=== PATIENT | male | born 1945 | race Caucasian/White ===

== ENCOUNTER → 2016-05-20 09:21 | Outpatient (CLI) | payer MEDICARE, BC ==
[2015-08-03 07:16] VITALS: BMI 31.9
[~2016-05-20 09:21] MED LIST: ASPIRIN325 MG PO; CATAPRES0.1 MG PO; CO Q-10100 MG PO; ESTER-C 500 MG1 TAB PO; GARLIC1 CAP PO; HYDROCODON-ACE1 EAC7 PO; IMDUR30 MG PO; LISINOPRIL-HCTZ1 T11 PO; MILK THISTLE175 M1 PO; MULTIPLE VITAMI1 TA1 PO; NATTOKINASE PO; NORVASC10 MG PO; PROSTATE FORMULA PO; VITAMIN E400 UNI2 PO; ZEBETA5 MG PO; ZETIA10 MG PO; [UNRECOGNIZED DRUG - OTHER] PO; [UNRECOGNIZED DRUG - OTHER] PO; [UNRECOGNIZED DRUG - OTHER] PO
== END | disposition home or self-care (01) ==
LOC: D.NM 09:21
DX: Z96.652 Presence of left artificial knee joint (principal)

== ENCOUNTER → 2017-04-07 08:22 | Outpatient (CLI) | payer MEDICARE, BC ==
[2015-08-03 07:16] VITALS: BMI 31.9
== END | disposition home or self-care (01) ==
LOC: D.US 08:22
DX: I71.4 Abdominal aortic aneurysm, without rupture (principal)

== ENCOUNTER → 2017-09-15 08:21 | Outpatient (CLI) | payer MEDICARE, BC ==
[2015-08-03 07:16] VITALS: BMI 31.9
== END | disposition home or self-care (01) ==
LOC: D.RAD 08:15 → D.US 08:30 → D.RAD 09:30 → D.US 10:30
DX: R10.84 Generalized abdominal pain (principal); R13.10 Dysphagia, unspecified; I71.4 Abdominal aortic aneurysm, without rupture

== ENCOUNTER → 2017-09-26 08:47 | Outpatient (CLI) | payer MEDICARE, BC ==
[2015-08-03 07:16] VITALS: BMI 31.9
== END | disposition home or self-care (01) ==
LOC: D.CT 08:47
DX: I71.4 Abdominal aortic aneurysm, without rupture (principal)

== ENCOUNTER 2018-04-16 06:31 | Outpatient (CLI) | payer MEDICARE, BC ==
[~2018-04-16] VITALS: Ht 177.8 cm; Wt 89.1 kg
--- NOTE | ~2018-04-16 | HEMODYNAMI ---
PATIENT:KIM HONEYCUTT MEDICAL RECORD: [id number] : 45 LOCATION:[facility] ADMISSION DATE: 04/16/18 Generatedon:04/16/20189:31 Patient name: KIM HONEYCUTT Patient #: [id number] SSN: : 1945 Date of study: 04/16/2018 Page: Of Hemodynamic Procedure Report Patient Data Patient Demographics Procedure consent was obtained First Name: KIM Gender: Male Last Name: TANGELA : 1945 Middle Initial: W Age: 72 year(s) Patient #: [id number] Race: Additional ID: [id number] Contact details [address]: [address] [place] [address] State: [place] City: [place] Zip code: [address] Past Medical History Allergies Allergen Reaction Date Comments Reported Other allergy 04/16/2018 Warfarin,Statins, PCN, Sulfa Admission Admission Data Admission Date: 04/16/2018 Admission Time: 6:31 Admit Source: Other Lab Results Lab Result Date: 04/16/2018 Lab Result Time: 0:00 Biochemistry Name Units Result Min Max BUN mg/dl 31 --(----)-* 7 18 Creatinine mg/dl 1.5 --(----)-* 0.6 1.3 CBC Name Units Result Min Max Hematocrit % 41.2 -*(----)-- 42 54 Hemoglobin g/dl 13.7 --(*---)-- 13.5 17.5 Procedure Procedure Types Cath Procedure Diagnostic Procedure LHC LHC w/Coronaries w/Grafts Peripheral Cath Diagnostic Procedure [employer] Peripheral Procedures Ovywt-Ibvbhac-Ioi-Off Renal Arteriogram Procedure Description Procedure Date Procedure Date: 04/16/2018 Procedure Start Time: 9:03 Procedure End Time: 9:30 Procedure Staff Name Function Watson Sewell MD Performing Physician Maximo Simmons RT Monitor Shyla Roper RT Scrub Aaliyah Lehman RN Nurse Loc Stover RT System Administration Advisor Procedure Data Cath Procedure Fluoroscopy Diagnostic fluoroscopy Total fluoroscopy Time: 7.4 time: 7.4 min min Diagnostic fluoroscopy Total fluoroscopy dose: dose: 1585 mGy 1585 mGy Contrast Material Contrast Material Type Amount (ml) Isovue 300 201 Entry Location Entry Primary Successful Side Size Upsize Upsize Entry Closure Succes sful Closure Location (Fr) 1 (Fr) 2 (Fr) Remarks Device Remarks Femoral Right 5 Fr Exoseal artery Estimated blood loss: 5 ml Diagnostic catheters Device Type Used For End Catheter Placement MULTIPACK JL 4.0 5Fr Procedure catheter DIAGNOSTIC AR MOD 5Fr Procedure Catheter ([id number]) DIAGNOSTIC LCB 5Fr Procedure catheter ([id number]) DIAGNOSTIC IM 5Fr Procedure catheter ([id number]) MULTIPACK Pigtail 5 Fr Procedure catheter MULTIPACK 3DRC 5Fr Procedure catheter Procedure Complications No complications Procedure Medications Medication Administration Route Dosage Oxygen etCO2 Nasal cannula 2 l/min Lidocaine 2% added to field 20 Heparin Flush Bag added to field 2 bags (1000units/500ml NS) 0.9% NaCl I.V. 100 ml/hr Versed I.V. 2 mg Fentanyl I.V. 100 mcg Versed I.V. 1 mg Fentanyl I.V. 50 mcg Versed I.V. 1 mg Fentanyl I.V. 50 mcg Hemodynamics Rest HGB: 13.7 (g/dl) Heart Rate: 69 (bpm) Pressure Samples Time Site Value (mmHg) Purpose Heart Use Rate(bpm) 9:16 LV 151/-2,19 Snapshot 76 9:16 AO 149/67(101) Pullback 73 9:16 LV 156/-1,19 Pullback 73 Gradients Valve Time Site 1 Site 2 Mean SEP/DFP Peak To Heart Use (mmHg) (sec/min) Peak Rate (mmHg) (bpm) Aortic 9:16 LV AO 10 18 7 73 156/-1,19 149/67(101) Calculations Valve P-P Mean Valve Index Valve Source Name Gradient Area Flow (cm2) Aortic 7 10 7 10 Snapshots Pre Cath Intra NCS Post Cath Vital Signs Time Heart Resp SPO2 etCO2 NIBP (mmHg) Rhythm Pain Sedation Rate (ipm) (%) (mmHg) Status Level (bpm) 8:42:48 69 16 99 13.5 164/84(128) NSR 0 (11) 10(A) , No pain 8:47:09 70 17 99 11.2 153/86(120) NSR 0 (11) 10(A) , No pain 8:51:31 67 13 92 0 135/77(111) NSR 0 (11) 10(A) , No pain 8:55:45 74 13 96 8.2 139/80(121) NSR 0 (11) 10(A) , No pain 9:00:03 69 14 98 27.7 143/75(114) NSR 0 (11) 10(A) , No pain 9:04:58 67 16 98 32.2 148/79(120) NSR 0 (11) 10(A) , No pain 9:09:18 72 14 97 43.5 131/77(112) NSR 0 (11) 10(A) , No pain 9:13:34 71 15 97 45.8 149/72(113) NSR 0 (11) 10(A) , No pain 9:17:56 73 13 98 39.8 144/71(118) NSR 0 (11) 10(A) , No pain 9:21:05 73 16 98 30.8 139/70(114) NSR 0 (11) 10(A) , No pain 9:25:25 69 14 98 32.3 146/69(120) NSR 0 (11) 10(A) , No pain 9:29:45 72 15 98 25.5 144/75(118) NSR 0 (11) 10(A) , No pain Medications Time Medication Route Dose Verified Delivered Reason Notes Effe ctiveness by by 8:43:10 Oxygen etCO2 2 Watson Buffie used for Nasal l/min Donato Lehman RN procedure cannula 8:43:16 Lidocaine 2% added 20ml Watson Watson for local to vial Donato Sewell MD anesthetic field 8:43:22 Heparin Flush added 2 Watson Watson used for Bag to bags Donato Sewell MD procedure (1000units/500ml field NS) 8:43:32 0.9% NaCl I.V. 100 Watson Buffie Per ml/hr Donato Lehman RN physician 9:00:41 Versed I.V. 2 mg Watson Buffie for Donato Lehman RN sedation 9:00:47 Fentanyl I.V. 100 Watson Buffie for mcg Donato Lehman RN sedation 9:12:11 Versed I.V. 1 mg Watson Sammieie for Donato Lehman RN sedation 9:12:14 Fentanyl I.V. 50 Watson Sammieie for mcg Donato Lehman RN sedation 9:16:26 Versed I.V. 1 mg Watson Sammieie for Donato Lehman RN sedation 9:16:31 Fentanyl I.V. 50 Watson Sammieie for mcg Donato Lehman RN sedation Procedure Log Time Note 8:12:17 Informed consent obtained and on chart 8:19:38 Admit Source: Other 8:19:55 Diagnostic Cath status Elective 8:19:57 Loc Suit RT(R) sent for patient. Start room use. 8:19:58 Time tracking: Regular hours (M-F 7:00 - 5:00) 8:20:01 Plan of Care:Hemodynamics will remain stable., Cardiac rhythm will remain stable., Comfort level will be maintained., Respiratory function will remain adequate., Patient/ family verbilizes understanding of procedure., Procedure tolerated without complication., Recovers from procedure without complications.. 8:29:54 H&P Date Dictated: 04/09/2018 Within 30 days and on chart., H&P Addendum completed by physician on day of procedure. (MUST COMPLETE FOR ALL OUTPATIENTS). 8:41:38 Vital chart was started 8:43:10 Oxygen 2 l/min etCO2 Nasal cannula was administered by Aaliyah Lehman RN; used for procedure; 8:43:16 Lidocaine 2% 20ml vial added to field was administered by Watson Sewell MD; for local anesthetic; 8:43:22 Heparin Flush Bag (1000units/500ml NS) 2 bags added to field was administered by Watson Sewell MD; used for procedure; 8:43:32 0.9% NaCl 100 ml/hr I.V. was administered by Aaliyah Lehman RN; Per physician; 8:45:19 Baseline sample Acquired. 8:45:22 Rhythm: sinus rhythm 8:45:23 Full Disclosure recording started 8:45:24 Pre-procedure instructions explained to patient. 8:45:25 Pre-op teaching completed and patient verbalized understanding. 8:45:26 Family in waiting room. 8:45:27 Patient NPO since Midnight. 8:46:08 Patient allergic to Other allergyWarfarin,Statins, PCN, Sulfa 8:46:27 Is the patient allergic to Iodine/contrast media? No. 8:46:28 Is patient on blood thinner?No 8:46:29 Patient diabetic? No. 8:46:32 Previous problem with sedation/anesthesia? No ? 8:46:33 Snore? Yes 8:46:34 Sleep apnea? No 8:46:34 Deviated septum? No 8:46:35 Opens mouth fully? Yes 8:46:35 Sticks out tongue? Yes 8:46:37 Airway obstruction? No ? 8:46:38 Dentures? No ? 8:46:41 Pre procedure: right dorsailis pedis pulse Doppler 8:46:44 Pre procedure: left dorsailis pedis pulse Doppler 8:46:45 Patient pain scale 0/10 ?. 8:46:48 IV patent on arrival in left forearm with 0.9% NaCl at [facility]. 8:46:50 Lab results completed and on chart. 8:47:51 Lab Result : BUN 31 mg/dl 8:47:51 Lab Result : Creatinine 1.5 mg/dl 8:47:51 Lab Result : Hemoglobin 13.7 g/dl 8:47:51 Lab Result : Hematocrit 41.2 % 8:47:55 Bilateral groins area was prepped with chlora-prep and draped in sterile fashion 8:47:56 Alarms reviewed by R. N. 8:47:56 Sharps counted by scrub and verified by R.N. 8:47:58 Use device set Femoral Dx 8:47:59 ACIST Syringe (06647) opened to sterile field. 8:47:59 Bag Decanter (2002S) opened to sterile field. 8:48:00 Medline Cath Pack ([id number]) opened to sterile field. 8:48:01 ACIST Hand Control (33858) opened to sterile field. 8:48:01 ACIST Manifold (26384) opened to sterile field. 8:48:02 DIAGNOSTIC Multipack 5Fr catheter set ([id number]) opened to sterile field. 8:48:03 SHEATH 5FR [place] (YJN411) opened to sterile field. 8:48:04 Tegaderm 4 x 4 (1626W) opened to sterile field. 8:48:05 DIAGNOSTIC WIRE .035 260cm J wire (575999) opened to sterile field. 8:52:29 Zero performed for pressure channel P1 8:53:46 Procedure type changed to Cath procedure, Diagnostic procedure, LHC, LHC w/Coronaries w/Grafts, Peripheral Cath Diagnostic Procedure, [employer] Property [employer] Peripheral Procedures, Qypvx-Nuqpnve-Ibx-Off, Renal Arteriogram 8:55:53 Physician arrived 8:55:54 --------ALL STOP TIME OUT------ 8:55:54 Final Timeout: patient, procedure, and site verified with staff and physician. All members of the team are in agreement. 8:55:56 Bilateral groins site verified by team. 8:55:59 Physical assessment completed. ASA score P 3 - A patient with severe systemic disease as per Watson Sewell MD. 8:56:02 Sedation plan: IV Moderate Sedation Medication:Versed, Fentanyl 9:00:41 Versed 2 mg I.V. was administered by Aaliyah Lehman RN; for sedation; 9:00:47 Fentanyl 100 mcg I.V. was administered by Aaliyah Lehman RN; for sedation; 9:03:56 Procedure started. 9:03:59 Local anesthetic to right femoral artery with Lidocaine 2% by Watson Sewell MD.INITIAL ACCESS ONLY 9:05:20 A 5 Fr sheath was inserted into the Right Femoral artery 9:06:41 A MULTIPACK JL 4.0 5Fr catheter was advanced over the wire and used for Procedure. 9:07:22 LCA angiography performed. 9:08:18 Catheter exchanged over wire. 9:09:09 A DIAGNOSTIC AR MOD 5Fr Catheter ([id number]) was advanced over the wire and used for Procedure. 9:09:23 RCA angiography performed. 9:09:38 SVG to RCA angiography performed. 9:10:41 Catheter exchanged over wire. 9:10:45 A DIAGNOSTIC LCB 5Fr catheter ([id number]) was advanced over the wire and used for Procedure. 9:12:11 Versed 1 mg I.V. was administered by Aaliyah Lehman RN; for sedation; 9:12:14 Fentanyl 50 mcg I.V. was administered by Aaliyah Lehman RN; for sedation; 9:12:17 SVG to Circ angiography performed. 9:12:25 Catheter exchanged over wire. 9:12:31 A DIAGNOSTIC IM 5Fr catheter ([id number]) was advanced over the wire and used for Procedure. 9:13:39 MOORE to LAD angiography performed. 9:14:49 Catheter exchanged over wire. 9:14:54 A MULTIPACK Pigtail 5 Fr catheter was advanced over the wire and used for Procedure. 9:16:15 LV gram done using JAIMES 9:16:17 Injector settings: Ml/sec: 10, Volume: 20, 9:16:19 LV hemodynamics recorded. 9:16:26 Versed 1 mg I.V. was administered by Aaliyah Lehman RN; for sedation; 9:16:31 Fentanyl 50 mcg I.V. was administered by Aaliyah Lehman RN; for sedation; 9:16:33 EF : 50 % 9:16:34 Catheter removed. 9:17:16 Abdominal angiogram w/ runoff was performed. 9:19:22 Left leg runoff performed. 9:20:33 Baseline sample Acquired. 9:20:56 Right leg runoff performed. 9:22:02 Catheter exchanged over wire. 9:22:31 Zero performed for pressure channel P1 9:22:34 Zero performed for pressure channel P1 9:22:37 Zero performed for pressure channel P1 9:23:28 A MULTIPACK 3DRC 5Fr catheter was advanced over the wire and used for Procedure. 9:25:56 Catheter removed. 9:25:58 EXOSEAL 5Fr (EX500) opened to sterile field. 9:26:06 Sheath removed intact; hemostasis achieved with Exoseal to the Right Femoral artery. 9:26:07 Procedure ended.(Physican Out) 9:27:26 Fluoroscopy time 07.40 minutes. 9:27:31 Flurop Dose total: 1585 9:27:31 Fluoroscopy dose: 1585 mGy 9:27:36 Contrast amount:Isovue 300 201ml. 9:27:37 Sharps counted by scrub and verified by R.N. 9:27:41 Insertion/operative site no bleeding no hematoma. 9:29:07 Post right femoral artery:stable, soft, clean and dry 9:29:23 Post Procedure Pulses reassessed and unchanged 9:29:25 Post-procedure physical assessment completed. ASA score P 3 - A patient with severe systemic disease as per Watson Sewell MD. 9:29:30 Post procedure rhythm: unchanged. 9:29:32 Estimated blood loss: 5 ml 9:29:32 Post procedure instruction explained to patient.Patient verbalizes understanding. 9:29:33 Patient needs reinforcement of post procedure teaching. 9:30:26 Procedure and supply charges have been captured, reviewed, submitted and are correct. 9:30:28 Procedure Complication : No complications 9:30:30 Vital chart was stopped 9:30:30 See physician's report for complete and final results. 9:30:31 Report given to Pre/Post Procedure Room. 9:30:33 Patient transfered to Pre/Post Procedure Room with Stretcher. 9:30:35 Procedure ended. 9:30:35 Full Disclosure recording stopped 9:30:40 End room use (Document Last) Device Usage Item Name Manufacture Quantity Catalog Hospital Part Current Minimal L ot# / Number Charge Number Stock Stock Serial# Code ACIST Acist 1 76837 782249 [id number] 379355 20 Syringe Medical (18847) Systems Inc Bag Microtek 1 637254 04783 099949 5 Decanter Medical Inc. () Medline Medline 1 [id number] 888430 73851 488305 5 Cath Pack ([id number]) ACIST Hand Acist 1 11224 772671 461124 109193 5 Control Medical (95421) Systems Inc ACIST Acist 1 26478 741673 909466 680829 5 Manifold Medical (38267) Systems Inc DIAGNOSTIC Cardinal 1 [id number] 613764 53910 660276 30 Multipack Health 5Fr catheter set (DG3465) SHEATH 5FR Terumo 1 [id number] 619684 158858 351321 5 [place] (XFI755) Tegaderm 4 3M 1 1626W 783371 147819 416501 5 x 4 (1626W) DIAGNOSTIC St Harpreet 1 708341 173060 087354 519701 30 WIRE .035 260cm J wire (251647) MULTIPACK Cardinal 1 862706 5 JL 4.0 5Fr Health catheter DIAGNOSTIC Cardinal 1 [id number] 238234 335591 820225 15 AR MOD 5Fr Health Catheter (274497J) DIAGNOSTIC Cardinal 1 [id number] 163129 600693 466519 5 LCB 5Fr Health catheter (156346J) DIAGNOSTIC Cardinal 1 [id number] 554248 620561 412508 5 IM 5Fr Health catheter (827241P) MULTIPACK Cardinal 1 661184 5 Pigtail 5 Health Fr catheter MULTIPACK Cardinal 1 964516 5 3DRC 5Fr Health catheter EXOSEAL 5Fr Cardinal 1 EX500 736490 942584 142404 10 (EX500) Health Signature Audit [place] Stage Time Signature Unsigned Intra-Procedure 04/16/2018 Maximo Simmons 9:31:16 AM RT(R) Signatures Monitor : Maximo Simmons RT Signature : Date : Time : [address] [place] [address]
[2018-04-16] MEDS ORDERED: NORMODYNE / TR200 MG PO (07:03)
[2018-04-16] MEDS ORDERED: NAC600 MG PO (07:04)
[2018-04-16 07:22] VITALS: BP 144/75; Ht 177.8 cm; Wt 89.1 kg
[2018-04-16 07:56] LABS: ANION GAP 13.9 mmol/L (8-16); CALCIUM 8.7 mg/dL (8.5-10.1); CARBON DIOXIDE 25.6 mmol/L (21.0-32.0); CREATININE - SERUM 1.5 mg/dL (0.6-1.3); POTASSIUM - SERUM 4.5 mmol/L (3.5-5.1)
[2018-04-16 08:22] LABS: BASOPHILS 0.2 % (0-2); EOSINOPHILS 3.3 % (0-7); HEMATOCRIT 41.2 % (42.0-54.0); HEMOGLOBIN 13.7 g/dL (13.5-17.5); IMMATURE GRANULOCYTES 0.3 % (0-5); LYMPHOCYTES 25.3 % (15-50); MCH 30.9 pg (26.0-34.0); MCHC 33.3 g/dL (31.0-37.0); MEAN PLATELET VOLUME 9.5 fL (7.4-10.4); MONOCYTES 10.3 % (2-11); NEUTROPHILS 60.6 % (40-80); PLATELET COUNT 196 10x3/uL (130-400); RBC 4.43 10x6/uL (4.20-6.10); RDW 14.2 % (11.5-14.5); WBC 5.8 10x3/uL (4.8-10.8)
--- NOTE | 2018-04-16 09:58 | NUR ---
945 PT IS ALERT, DR FOSS AT BEDSIDE SPEAKING TO PT. PT DENIES ANY C/O. DRESSING TO RIGHT GROIN IS CDI, AREA IS SOFT AND NONTENDER. PEDAL PULSES RLE ARE PALPABLE. HOB IS FLAT. NSR, RATE 64, DENIES ANY C/O CHEST PAIN. FAMILY AT BEDSIDE, IV PATENT AND INFUSING PER ORDERS VIA PUMP.
--- NOTE | 2018-04-16 10:13 | NUR ---
5 FR EXOSEAL IS CDI, AREA IS SOFT AND NONTENDER. PEDAL PULSES PALPABLE. HOB IS FLAT. NSR, RATE 64. BP IS 131/62. FAMILY AT BEDSIDE. PT JHOANA PO FLUIDS WITH NO C/O NAUSEA.
--- NOTE | 2018-04-16 10:51 | NUR ---
PT ALERT AND VISITING WITH FAMILY. DENIES ANY C/O PAIN OR NAUSEA. DRESSING CDI TO RIGHT GROIN, AREA IS SOFT AND NONTENDER. PEDAL PULSES PALPABLE. IV PATENT AND INFUSING VIA PUMP PER ORDERS. PT JHOANA PO FLUIDS WITH NO C/O NAUSEA. VSS. CALL LIGHT IN REACH.
--- NOTE | 2018-04-16 10:59 | NUR ---
PT VOIDED 600 CC CLEAR YELLOW URINE TO URINAL. DRESSING CDI TO RIGHT GROIN, AREA IS SOFT AND NONTENDER. PEDAL PULSES PALPABLE. HOB IS FLAT, FAMILY AT BEDSIDE. CALL LIGHT IN REACH.
--- NOTE | 2018-04-16 11:33 | NUR ---
HOB ELEVATED 30 DEGREES, DRESSING CDI TO RIGHT GROIN, PEDAL PULSES PALPABLE. PT ALERT AND DENIES ANY C/O PAIN.
--- NOTE | 2018-04-16 11:57 | NUR ---
DRESSING CDI TO RIGHT GROIN, AREA IS SOFT AND NONTENDER. PEDAL PULSES PALPABLE. HOB FULLY ELEVATED. VSS. SON AT BEDSIDE. CALL LIGHT IN REACH.
--- NOTE | 2018-04-16 12:11 | NUR ---
DRESSING REMAINS CDI TO RIGHT GROIN, AREA IS SOFT AND NONTENDER. PEDAL PULSES PALPABLE. PT JHOANA 100% OF SANDWICH WITH NO C/O NAUSEA. DC INSTRUCTIONS REVIEWED WITH PT AND SON WHO VERBALIZE UNDERSTANDING. WRITTEN COPIES PROVIDED TO PT.
--- NOTE | 2018-04-16 12:55 | NUR ---
INFUSION COMPLETE AND IV DC'D WITH CATH INTACT. ASSISTED PT WITH DRESSING FOR DC TO HOME. DRESSING IS CDI TO RIGHT GROIN, AREA IS SOFT AND NONTENDER. PEDAL PULSES PALPABLE. PT ESCORTED TO PRIVATE AUTO VIA WC BY NURSE WITH SON DRIVING HIM HOME.
== END 2018-04-16 12:55 | disposition home or self-care (01) ==
LOC: D.CATH 06:31
PROVIDERS: Internal Medicine Cardiovascular Disease
DX: I25.119 Atherosclerotic heart disease of native coronary artery with unspecified angina pectoris (principal); Z95.1 Presence of aortocoronary bypass graft; I70.1 Atherosclerosis of renal artery; I70.213 Atherosclerosis of native arteries of extremities with intermittent claudication, bilateral legs; I10 Essential (primary) hypertension

== ENCOUNTER 2018-04-28 10:47 | Outpatient (CLI) | payer MEDICARE, BC ==
[~2018-04-28] VITALS: Ht 177.8 cm; Wt 90.0 kg
--- NOTE | ~2018-04-28 | HEMODYNAMI ---
PATIENT:KIM HONEYCUTT MEDICAL RECORD: [id number] : 45 LOCATION:[facility] ADMISSION DATE: 04/28/18 Generatedon:04/28/201814:22 Patient name: KIM HONEYCUTT Patient #: [id number] SSN: : 1945 Date of study: 04/28/2018 Page: Of Hemodynamic Procedure Report Patient Data Patient Demographics Procedure consent was obtained First Name: KIM Gender: Male Last Name: TANGELA : 1945 Middle Initial: W Age: 72 year(s) Patient #: [id number] Race: Additional ID: [id number] Contact details [address]: [address] [place] [address] State: [place] City: [place] Zip code: [address] Past Medical History Allergies Allergen Reaction Date Comments Reported Other allergy 04/16/2018 Warfarin,Statins, PCN, Sulfa Other allergy 04/28/2018 WARFARIN, STATINS, PCN, SULFA Admission Admission Data Admission Date: 04/28/2018 Admission Time: 10:47 Weight (lbs.): 460.77 Weight (kg.): 209 Lab Results Lab Result Date: 04/28/2018 Lab Result Time: 0:00 Biochemistry Name Units Result Min Max BUN mg/dl 30 --(----)-* 7 18 Creatinine mg/dl 1.7 --(----)-* 0.6 1.3 CBC Name Units Result Min Max Hemoglobin g/dl 13.9 --(*---)-- 13.5 17.5 Procedure Procedure Types Cath Procedure Diagnostic Procedure Sedation Charges Moderate Sedation up to 45 minutes Peripheral vascular Intervention Angioplasty DIRECTOR OF MARKETING OPERATIONS-Renal/Visceral Stent Stent Iliac w/plasty Initial Procedure Description Procedure Date Procedure Date: 04/28/2018 Procedure Start Time: 13:19 Procedure End Time: 14:19 Procedure Staff Name Function Watson Sewell MD Performing Physician Ina Plata RT Monitor Loc Stover RT Scrub Aaliyah Lehman RN Nurse Mary Lou Perez RN Nurse Procedure Data Cath Procedure Fluoroscopy Diagnostic fluoroscopy Total fluoroscopy Time: time: 12.9 min 12.9 min Diagnostic fluoroscopy Total fluoroscopy dose: 843 dose: 843 mGy mGy Contrast Material Contrast Material Type Amount (ml) Isovue 300 118 Entry Location Entry Primary Successful Side Size Upsize Upsize Entry Closure Succes sful Closure Location (Fr) 1 (Fr) 2 (Fr) Remarks Device Remarks Femoral Left 6 Fr 6 Fr 7 Fr Exoseal artery Short Long Long Estimated blood loss: 10 ml Procedure Complications No complications Procedure Medications Medication Administration Route Dosage 0.9% NaCl I.V. 100 ml/hr Oxygen etCO2 Nasal cannula 2 l/min Lidocaine 2% added to field 20 Heparin Flush Bag added to field 2 bags (1000units/500ml NS) Versed I.V. 2 mg Fentanyl I.V. 100 mcg Versed I.V. 1 mg Fentanyl I.V. 50 mcg Versed I.V. 1 mg Fentanyl I.V. 50 mcg Heparin Bolus I.V. 7000 units Versed I.V. 1 mg Fentanyl I.V. 50 mcg Versed I.V. 1 mg Fentanyl I.V. 50 mcg Versed I.V. 1 mg Fentanyl I.V. 50 mcg Versed I.V. 1 mg Fentanyl I.V. 50 mcg Plavix P.O. 600 mg Hemodynamics Rest Pre Cath Intra NCS Post Cath Vital Signs Time Heart Resp SPO2 etCO2 NIBP (mmHg) Rhythm Pain Sedation Rate (ipm) (%) (mmHg) Status Level (bpm) 13:06:31 80 20 100 31.7 168/81(136) NSR 0 (11) 10(A) , No pain 13:10:56 64 17 100 29.4 156/87(129) NSR 0 (11) 10(A) , No pain 13:15:30 57 12 97 24.1 155/66(134) NSR 0 (11) 10(A) , No pain 13:19:50 71 13 96 34 145/85(113) NSR 0 (11) 10(A) , No pain 13:24:14 71 15 99 37.7 154/80(115) NSR 0 (11) 9(A) , No pain 13:28:36 69 12 99 37.7 157/72(117) NSR 0 (11) 9(A) , No pain 13:32:55 69 11 99 35.5 139/75(117) NSR 0 (11) 9(A) , No pain 13:37:11 71 11 98 39.2 127/68(113) NSR 0 (11) 9(A) , No pain 13:41:31 70 12 97 39.2 136/70(109) NSR 0 (11) 10(A) , No pain 13:45:49 77 14 97 16.6 143/74(106) NSR 0 (11) 10(A) , No pain 13:50:11 75 15 98 35.4 142/77(105) NSR 0 (11) 10(A) , No pain 13:54:33 76 13 95 20.3 136/70(106) NSR 0 (11) 9(A) , No pain 13:58:59 72 14 98 34.7 139/69(106) NSR 0 (11) 9(A) , No pain 14:03:19 70 11 98 34.7 143/76(108) NSR 0 (11) 10(A) , No pain 14:07:33 71 12 98 38.4 133/74(117) NSR 0 (11) 9(A) , No pain 14:11:56 69 13 98 35.4 140/69(109) NSR 0 (11) 10(A) , No pain 14:16:18 75 14 98 27.9 149/83(120) NSR 0 (11) 10(A) , No pain Medications Time Medication Route Dose Verified Delivered Reason Notes Effectiveness by by 13:05:21 0.9% NaCl I.V. 100 Watson Mary Lou used for ml/hr Donato Perez ent nurse 13:05:27 Oxygen etCO2 2 Watson Mary Lou used for Nasal l/min Donato Perez procedure cannula RN 13:05:35 Lidocaine 2% added 20ml Watson Watson for local to vial Donato Sewell MD anesthetic field 13:05:39 Heparin Flush added 2 Watson Watson used for Bag to bags Donato Sewell MD procedure (1000units/500ml field NS) 13:16:26 Versed I.V. 2 mg Watson Buffie for sedation Donato Lehman RN 13:16:33 Fentanyl I.V. 100 Watson Buffie for sedation mcg Donato Lehman RN 13:20:28 Versed I.V. 1 mg Watson Buffie for sedation Donato Lehman RN 13:20:33 Fentanyl I.V. 50 Watson Buffie for sedation mcg Donato Lehman RN 13:28:52 Versed I.V. 1 mg Watson Buffie for sedation Donato Lehman RN 13:28:56 Fentanyl I.V. 50 Watson Buffie for sedation mcg Donato Lehman RN 13:30:11 Heparin Bolus I.V. 7000 Watson Buffie for verif ied units Donato Lehman RN anticoagulation with dr sewell 13:38:33 Versed I.V. 1 mg Watson Buffie for sedation Donato Lehman RN 13:38:37 Fentanyl I.V. 50 Watson Buffie for sedation mcg Donato Lehman RN 13:44:28 Versed I.V. 1 mg Watson Buffie for sedation Donato Lehman RN 13:44:31 Fentanyl I.V. 50 Watson Buffie for sedation mcg Donato Lehman RN 13:49:37 Versed I.V. 1 mg Watson Buffie for sedation Donato Lehman RN 13:49:40 Fentanyl I.V. 50 Watson Buffie for sedation mcg Donato Lehman RN 14:06:34 Versed I.V. 1 mg Watson Buffie for sedation Donato Lehman RN 14:06:45 Fentanyl I.V. 50 Watson Buffie for sedation mcg Donato Lehman RN 14:19:24 Plavix P.O. 600 Watson Buffie for mg Donato Lehman RN antiplatelet therapy Procedure Log Time Note 12:47:21 Aaliyah Lehman RN sent for patient. Start room use. 12:47:22 Signed procedure consent form obtained from patient. 12:47:24 Diagnostic Cath status Elective 12:47:25 Time tracking: Regular hours (M-F 7:00 - 5:00) 12:47:30 Plan of Care:Hemodynamics will remain stable., Cardiac rhythm will remain stable., Comfort level will be maintained., Respiratory function will remain adequate., Patient/ family verbilizes understanding of procedure., Procedure tolerated without complication., Recovers from procedure without complications.. 12:47:42 H&P Date Dictated: 04/09/2018 Within 30 days and on chart., H&P Addendum completed by physician on day of procedure. (MUST COMPLETE FOR ALL OUTPATIENTS). 13:00:39 Patient received from Pre/Post Procedure Room to CCL 1 Alert and oriented. Tansferred to table in Supine position. 13:00:40 Warm blankets applied, and senait hugger turned on for patient comfort. 13:00:40 Correct patient and procedure confirmed by team. 13:00:41 ECG and BP/O2 sat monitors applied to patient. 13:05:11 Vital chart was started 13:05:21 0.9% NaCl 100 ml/hr I.V. was administered by Mary Lou Perez RN; used for procedure; 13:05:27 Oxygen 2 l/min etCO2 Nasal cannula was administered by Mary Lou Perez RN; used for procedure; 13:05:35 Lidocaine 2% 20ml vial added to field was administered by Watson Sewell MD; for local anesthetic; 13:05:39 Heparin Flush Bag (1000units/500ml NS) 2 bags added to field was administered by Watson Sewell MD; used for procedure; 13:11:23 Rhythm: sinus rhythm 13:11:24 Full Disclosure recording started 13:11:25 Pre-procedure instructions explained to patient. 13:11:25 Pre-op teaching completed and patient verbalized understanding. 13:11:27 Family in patients room. 13:11:28 Patient NPO since Midnight. 13:11:57 Patient allergic to Other allergyWARFARIN, STATINS, PCN, SULFA 13:12:03 Is patient on blood thinner?No 13:12:08 Patient diabetic? No. 13:12:12 Previous problem with sedation/anesthesia? No ? 13:12:13 Snore? Yes 13:12:14 Sleep apnea? No 13:12:15 Deviated septum? No 13:12:16 Opens mouth fully? Yes 13:12:16 Sticks out tongue? Yes 13:12:18 Airway obstruction? No ? 13:12:21 Dentures? No ? 13:12:32 Pre procedure: right dorsailis pedis pulse 1+ Palpable, but thready & weak; easily obliterated 13:12:34 Pre procedure: left dorsailis pedis pulse 1+ Palpable, but thready & weak; easily obliterated 13:12:37 Patient pain scale 0/10 ?. 13:12:41 IV patent on arrival in left hand with 0.9% NaCl at [facility]. 13:13:00 Lab Result : BUN 30 mg/dl 13:13:00 Lab Result : Creatinine 1.7 mg/dl 13:13:00 Lab Result : Hemoglobin 13.9 g/dl 13:13:02 Lab results completed and on chart. 13:13:08 Bilateral groins area was prepped with chlora-prep and draped in sterile fashion 13:13:09 Alarms reviewed by R. N. 13:13:09 Sharps counted by scrub and verified by R.N. 13:13:16 Use device set CATH PACK 13:13:17 ACIST Syringe (69348) opened to sterile field. 13:13:18 ACIST Hand Control (91917) opened to sterile field. 13:13:18 ACIST Manifold (85650) opened to sterile field. 13:13:18 Medline Cath Pack ([id number]) opened to sterile field. 13:13:19 Bag Decanter (2002S) opened to sterile field. 13:13:19 DIAGNOSTIC WIRE .035 260cm J wire (818519) opened to sterile field. 13:13:43 SHEATH 6FR [place] (CIN509) opened to sterile field. 13:13:44 SHEATH 6FR Brite Tip 35cm (079293V) opened to sterile field. 13:13:44 INFLATOR Merit BasixCompak (MZ3434) opened to sterile field. 13:14:04 --------ALL STOP TIME OUT------ 13:14:05 Final Timeout: patient, procedure, and site verified with staff and physician. All members of the team are in agreement. 13:14:06 Bilateral groins site verified by team. 13:14:09 Physical assessment completed. ASA score P 3 - A patient with severe systemic disease as per Watson Sewell MD. 13:14:12 Sedation plan: IV Moderate Sedation Medication:Versed, Fentanyl 13:16:26 Versed 2 mg I.V. was administered by Aaliyah Lehman RN; for sedation; 13:16:33 Fentanyl 100 mcg I.V. was administered by Aaliyah Lehman RN; for sedation; 13:19:42 Zero performed for pressure channel P1 13:19:47 Procedure started. 13:19:56 Local anesthetic to left femerol artery with Lidocaine 2% by Watson Sewell MD.INITIAL ACCESS ONLY 13:20:28 Versed 1 mg I.V. was administered by Aaliyah Lehman RN; for sedation; 13::33 Fentanyl 50 mcg I.V. was administered by Aaliyah Lehman RN; for sedation; 13:21:28 A 6 Fr Short sheath was inserted into the Left Femoral artery 13:22:31 Cordis 6Fr RDC guide catheter opened to sterile field. 13:23:00 TUBING High Pressure Extension Tubing (Donato) ([id number]) opened to sterile field. 13:23:41 6 Fr RDC guide catheter was inserted over the wire 13:28:16 Guide Catheter removed. unable to cannulate vessel. 13:28:32 GUIDE 6FR JR 4.0 catheter ([id number]) opened to sterile field. 13::41 6 Fr JR 4 guide catheter was inserted over the wire 13:28:52 Versed 1 mg I.V. was administered by Aaliyah Lehman RN; for sedation; ::56 Fentanyl 50 mcg I.V. was administered by Aaliyah Lehman RN; for sedation; 13:29:44 Right renal angiography performed. 13:30:11 Heparin Bolus 7000 units I.V. was administered by Aaliyah Lehman RN; for anticoagulation; verified with dr sewell 13:30:19 BMW 300cm Straight [place] 2 wire ([id number]) opened to sterile field. 13:31:07 BMW 300 wire advanced. 13:32:10 Procedure type changed to Cath procedure, Diagnostic procedure, Sedation Charges, Moderate Sedation up to 45 minutes, Peripheral vascular Intervention, Angioplasty, DIRECTOR OF MARKETING OPERATIONS-Renal/Visceral, Stent, Stent Iliac w/plasty Initial 13:34:24 Inflate balloon Inflation number: 1 A MAVERICK 4.0 X 12 balloon ([id number]) was prepped and advanced across the Proximal Renal, Right, then inflated to 7 SARAH for 0:00 (min:sec). 13:35:31 Inflation number: 2 The MAVERICK 4.0 X 12 balloon ([id number]) was reinflated across the Proximal Renal, Right, to 10 SARAH for 0:10 (min:sec). 13:38:33 Versed 1 mg I.V. was administered by Aaliyah Lehman RN; for sedation; 13:38:35 Inflation number: 3 The MAVERICK 4.0 X 12 balloon ([id number]) was reinflated across the Proximal Renal, Right, to 15 SARAH for 0:10 (min:sec). 13:38:37 Fentanyl 50 mcg I.V. was administered by Aaliyah Lehman RN; for sedation; 13:39:32 Balloon removed over the wire. 13:39:44 Wire removed. 13:40:31 GUIDE REMOVED OVER WIRE 13:41:05 Sheath upsized to a 6 Fr Long. 13:44:28 Versed 1 mg I.V. was administered by Aaliyah Lehman RN; for sedation; 13:44:31 Fentanyl 50 mcg I.V. was administered by Aaliyah Lehman RN; for sedation; 13:46:53 Inflate balloon Inflation number: 1 A POWERFLEX PRO 7.0 x 20 x 135 cm balloon ([id number]) was prepped and advanced across the Proximal Common Iliac, Left, then inflated to 10 SARAH for 0:00 (min:sec). 13:48:26 Balloon removed over the wire. 13:49:37 Versed 1 mg I.V. was administered by Aaliyah Lehman RN; for sedation; 13:49:40 Fentanyl 50 mcg I.V. was administered by Aaliyah Lehman RN; for sedation; 13:52:29 Inflate balloon Inflation number: 2 A POWERFLEX PRO 8.0 x 40 x 135cm balloon ([id number]) was prepped and advanced across the Proximal Common Iliac, Left, then inflated to 10 SARAH for 0:00 (min:sec). 13:52:59 Balloon removed over the wire. 13:59:57 Patient Weight : 460.77 lbs 14:02:41 SHEATH 7FR [place] (RSR04) opened to sterile field. 14:02:53 Sheath upsized to a 7 Fr Long. 14:06:34 Versed 1 mg I.V. was administered by Aaliyah Lehman RN; for sedation; 14:06:45 Fentanyl 50 mcg I.V. was administered by Aaliyah Lehman RN; for sedation; 14:10:29 Place stent Inflation Number: 3 A REGINO 9 x 39 x 135 stent ([id number]) was prepped and advanced across the Proximal Common Iliac, Left. The stent was deployed at 10 SARAH for 0:00 (min:sec). 14:11:09 Stent catheter was removed intact over wire. 14:12:18 SHEATH 7FR [place] (YOT536) opened to sterile field. 14:12:40 7FR LONG SHEATH EXCHANGED FOR 7FR SHORT SHEATH 14:12:52 EXOSEAL 7Fr (EX700) opened to sterile field. 14:14:22 Sheath removed intact; hemostasis achieved with Exoseal to the Left Femoral artery. 14:15:12 Procedure ended.(Physican Out) 14:17:29 Procedure and supply charges have been captured, reviewed, submitted and are correct. 14:17:34 Fluoroscopy time 12.90 minutes. 14:17:38 Flurop Dose total: 843 14:17:38 Fluoroscopy dose: 843 mGy 14:17:41 Contrast amount:Isovue 300 118ml. 14:17:43 Sharps counted by scrub and verified by R.N. 14:17:46 Post-op/insertion site Left Femoral artery dressed using a 4 x 4 and Tegaderm. 14:17:51 Post-procedure physical assessment completed. ASA score P 3 - A patient with severe systemic disease as per Watson Sewell MD. 14:18:06 Post procedure rhythm: sinus rhythm 14:18:08 Estimated blood loss: 10 ml 14:18:09 Post procedure instruction explained to patient.Patient verbalizes understanding. 14:18:09 Patient needs reinforcement of post procedure teaching. 14:18:12 Procedure Complication : No complications 14:19:08 Vital chart was stopped 14:19:08 See physician's report for complete and final results. 14:19:10 Report given to Pre/Post Procedure Room. 14:19:12 Patient transfered to Pre/Post Procedure Room with Bed. 14:19:14 Procedure ended. 14:19:14 Full Disclosure recording stopped 14:19:17 End room use (Document Last) 14:19:24 Plavix 600 mg P.O. was administered by Aaliyah Lehman RN; for antiplatelet therapy; Intervention Summary Intervention Notes Time ActionType Lesion and Equipment Action# Pressure Duration Attributes Used 13:34:24 Inflate Proximal MAVERICK 4.0 1 7 00:00 balloon Renal, X 12 balloon Right ([id number]) 13:35:31 Reinflate Proximal MAVERICK 4.0 2 10 00:10 balloon Renal, X 12 balloon Right ([id number]) 13:38:35 Reinflate Proximal MAVERICK 4.0 3 15 00:10 balloon Renal, X 12 balloon Right ([id number]) 13:46:53 Inflate Proximal POWERFLEX 1 10 00:00 balloon Common PRO 7.0 x 20 Iliac, Left x 135 cm balloon ([id number]) 13:52:29 Inflate Proximal POWERFLEX 2 10 00:00 balloon Common PRO 8.0 x 40 Iliac, Left x 135cm balloon ([id number]) 14:10:[address] stent Proximal REGINO 9 x 3 10 00:00 Common 39 x 135 Iliac, Left stent ([id number]) Device Usage Item Name Manufacture Quantity Catalog Number Hospital Part Current Min imal Lot# / Charge Number Stock Stock Serial# Code ACIST Acist 1 47286 294428 742905 463880 20 Syringe Medical (92241) Systems Inc ACIST Hand Acist 1 45837 599155 121176 452329 5 Control Medical (94359) Systems Inc ACIST Acist 1 10739 930562 896972 640849 5 Manifold Medical (79087) Systems Inc Medline Cath Medline 1 [id number] 562362 17636 907312 5 Pack ([id number]) Bag Decanter Microtek 1 2001S 383330 44471 018632 5 (2001S) Medical Inc. DIAGNOSTIC St Harpreet 1 827370 578910 397379 369127 30 WIRE .035 260cm J wire (632052) SHEATH 6FR Terumo 1 TJW626 291542 030744 297338 40 [place] (EZS488) SHEATH 6FR Cardinal 1 [id number] 292960 797062 336732 1 Brite Tip Health 35cm (338433I) INFLATOR Merit 1 VD8597 413232 353979 443646 15 [employer] Medical BasixCompak (BZ3204) Cordis 6Fr Cardinal 1 [id number] 433435 535472 273176 5 [facility] guide Health catheter TUBING High Merit 1 [id number] 877164 26910 125060 10 Pressure Medical Extension Tubing (Sewell) (GU0913X) GUIDE 6FR JR Medtronic 1 [id number] 226340 77034 165704 1 4.0 catheter (UB4JV09) BMW 300cm Ayala 1 7951853 948060 725454 500421 5 Straight Vascular [place] 2 wire (9049954) MAVERICK 4.0 Climax 1 [id number] 122766 835811 058859 1 X 12 balloon Scientific ([id number]) POWERFLEX Cardinal 1 [id number] 138371 687192 584258 5 PRO 7.0 x 20 Health x 135 cm balloon (7007264H) POWERFLEX Cardinal 1 [id number] 012049 241456 172977 5 PRO 8.0 x 40 Health x 135cm balloon (3161434H) SHEATH 7FR Terumo 1 RSR04 834569 689433 824545 5 Destination (RSR04) REGINO 9 x Cardinal 1 [id number] 925616 040136 328131 5 39 x 135 Health stent ([id number]) SHEATH 7FR Terumo 1 PDN622 804989 429875 178404 5 [place] (TYA031) EXOSEAL 7Fr Cardinal 1 EX700 340750 291888 451835 5 (EX700) Health Signature Audit Sharon Stage Time Signature Unsigned Intra-Procedure 04/28/2018 Ina Plata 2:22:27 PM RT(R) Signatures Monitor : Ina Plata Signature : RT Date : Time : [address] [place] [address]
[~2018-04-28 10:47] MED LIST changes: +NAC600 MG PO; +NORMODYNE / TR200 MG PO
[2018-04-28 11:21] VITALS: BP 110/71; Ht 177.8 cm; Wt 90.0 kg
[2018-04-28 11:38] LABS: BASOPHILS 0.2 % (0-2); HEMATOCRIT 41.8 % (42.0-54.0); HEMOGLOBIN 13.9 g/dL (13.5-17.5); IMMATURE GRANULOCYTES 0.2 % (0-5); LYMPHOCYTES 26.6 % (15-50); MCH 30.7 pg (26.0-34.0); MCHC 33.3 g/dL (31.0-37.0); MCV 92.3 fL (80.0-100.0); MEAN PLATELET VOLUME 9.1 fL (7.4-10.4); MONOCYTES 8.9 % (2-11); NEUTROPHILS 62.1 % (40-80); PLATELET COUNT 181 10x3/uL (130-400); RBC 4.53 10x6/uL (4.20-6.10); RDW 13.9 % (11.5-14.5); WBC 6.1 10x3/uL (4.8-10.8)
[2018-04-28 11:47] LABS: ANION GAP 15.7 mmol/L (8-16); CARBON DIOXIDE 23.7 mmol/L (21.0-32.0); CREATININE - SERUM 1.7 mg/dL (0.6-1.3); POTASSIUM - SERUM 4.4 mmol/L (3.5-5.1)
--- NOTE | 2018-04-28 14:47 | NUR ---
LEFT GROIN DRESSING C/D/I. NO S/S OF HEMATOMA NOTED. LEFT PEDAL PULSE PRESENT. VSS. FAMILY AT BEDSIDE. DR. ZEPEDA ROUNDED AND SPOKE WITH FAMILY.
--- NOTE | 2018-04-28 15:15 | NUR ---
LEFT GROIN DRESSING C/D/I. NO S/S OF HEMATOMA. VSS. LEFT PEDAL PULSE PRESENT.
--- NOTE | 2018-04-28 15:45 | NUR ---
LEFT GROIN DRESSING C/D/I. NO S/S OF HEMATOMA NOTED. VSS. PT VOIDED IN URINAL WITHOUT DIFFICULTY.
--- NOTE | 2018-04-28 16:32 | NUR ---
VSS. LEFT GROIN DRESSING C/D/I. NO S/S OF HEMATOMA NOTED. LEFT PEDAL PULSE PALPABLE.
--- NOTE | 2018-04-28 17:04 | NUR ---
LEFT GROIN DRESSING C/D/I. NO S/S OF HEMATOMA NOTED. VSS.
--- NOTE | 2018-04-28 17:31 | NUR ---
LEFT GROIN DRESSING C/D/I. NO S/S OF HEMATOMA NOTED. RIGHT PEDAL PULSE PALPABLE. PT'S HEAD OF BED INC TO 30 DEGREES. PT SET UP WITH SANDWICH TRAY. VSS.
--- NOTE | 2018-04-28 18:09 | NUR ---
LEFT FA PIV D/C'D WITH CATH TIP INTACT. PT TOLERATED WELL. DISCUSSED DISCHARGE INSTRUCTIONS WITH PT AND PT'S FAMILY. THEY VOICED UNDERSTANDING. PT REPORTS THAT HE DOES NOT LIKE TO TAKE BLOOD THINNERS AND REPORTS BEING ALLERGIC TO "ALL BLODD THINNERS". PT REPORTS THAT WARFARIN CAUSED HIM TO HAVE A ABDOMINAL AORTIC ANEURYSM. HE HAS NOT HAD A SPECIFIC REACTION TO [facility], BUT IS HESITANT TO TAKE HE. HE STATES HE WILL CALL DR. FOSS'S OFFICE TOMORROW TO DISCUSS HIS OPTIONS AND HOW LONG HE WOULD HAVE TO BE ON THE MEDICATION. LEFT GROIN DRESSING C/D/I. NO S/S OF HEMATOMA NOTED. PT INSTRUCTED TO GET UP AND DRESS SELF. FAMILY AT BEDSIDE.
--- NOTE | 2018-04-28 18:20 | NUR ---
PT TAKEN OUT BY WHEELCHAIR TO VEHICLE. NO S/S OF DISTRESS NOTED.
[2018-04-28] MEDS ORDERED: PLAVIX75 MG PO (18:26)
[2018-04-28] MEDS ORDERED: BAYER CHEWABLE81 MG PO (18:26)
== END 2018-04-28 18:20 | disposition home or self-care (01) ==
LOC: D.CATH 10:47
PROVIDERS: Internal Medicine Cardiovascular Disease
DX: I70.1 Atherosclerosis of renal artery (principal); I70.212 Atherosclerosis of native arteries of extremities with intermittent claudication, left leg; N28.9 Disorder of kidney and ureter, unspecified; I10 Essential (primary) hypertension; I65.29 Occlusion and stenosis of unspecified carotid artery; I71.4 Abdominal aortic aneurysm, without rupture; Z87.891 Personal history of nicotine dependence; E78.00 Pure hypercholesterolemia, unspecified; E66.3 Overweight; Z88.0 Allergy status to penicillin; Z88.8 Allergy status to other drugs, medicaments and biological substances; Z79.899 Other long term (current) drug therapy; Z01.812 Encounter for preprocedural laboratory examination

== ENCOUNTER → 2018-05-29 08:55 | Outpatient (CLI) | payer MEDICARE, BC ==
[2018-04-28 11:21] VITALS: BMI 28.4
[~2018-05-29 08:55] MED LIST changes: +BAYER CHEWABLE81 MG PO; +PLAVIX75 MG PO
[2018-05-29 09:25] LABS: BASOPHILS 0.2 % (0-2); EOSINOPHILS 2.9 % (0-7); HEMATOCRIT 41.1 % (42.0-54.0); HEMOGLOBIN 13.5 g/dL (13.5-17.5); IMMATURE GRANULOCYTES 0.2 % (0-5); MCH 30.6 pg (26.0-34.0); MCHC 32.8 g/dL (31.0-37.0); MCV 93.2 fL (80.0-100.0); MEAN PLATELET VOLUME 8.8 fL (7.4-10.4); MONOCYTES 6.2 % (2-11); NEUTROPHILS 67.5 % (40-80); PLATELET COUNT 174 10x3/uL (130-400); RBC 4.41 10x6/uL (4.20-6.10); WBC 6.6 10x3/uL (4.8-10.8)
[2018-05-29 09:34] LABS: PROTEIN - 24HR URINE 173 mg/24hr (0-149.1); PROTEIN - URINE 6.9 mg/dL (0.0-11.9)
[2018-05-29 09:38] LABS: CREATININE - URINE 65.2 mg/dL (30-125)
[2018-05-29 09:58] LABS: ANION GAP 12.9 mmol/L (8-16); CALCIUM 8.7 mg/dL (8.5-10.1); CARBON DIOXIDE 26.2 mmol/L (21.0-32.0); CREATININE - SERUM 1.6 mg/dL (0.6-1.3); PHOSPHOROUS 3.7 mg/dL (2.5-4.9); POTASSIUM - SERUM 5.1 mmol/L (3.5-5.1)
[2018-05-29 10:03] LABS: CREATININE - URINE 65.2 mg/dL (30-125); CREATININE CLEARANCE 70 ml/min (71-135)
== END | disposition home or self-care (01) ==
LOC: D.LAB 08:55
PROVIDERS: ATTEND Internal Medicine Nephrology
DX: N18.9 Chronic kidney disease, unspecified (principal)

== ENCOUNTER → 2018-06-24 09:57 | Outpatient (CLI) | payer MEDICARE, BC ==
[2018-04-28 11:21] VITALS: BMI 28.4
[2018-06-24 10:31] LABS: BASOPHILS 0.1 % (0-2); EOSINOPHILS 3.6 % (0-7); HEMATOCRIT 41.2 % (42.0-54.0); HEMOGLOBIN 13.2 g/dL (13.5-17.5); IMMATURE GRANULOCYTES 0.1 % (0-5); LYMPHOCYTES 21.6 % (15-50); MCH 30.6 pg (26.0-34.0); MCV 95.4 fL (80.0-100.0); MEAN PLATELET VOLUME 9.5 fL (7.4-10.4); MONOCYTES 6.9 % (2-11); NEUTROPHILS 67.7 % (40-80); PLATELET COUNT 194 10x3/uL (130-400); RBC 4.32 10x6/uL (4.20-6.10); RDW 14.7 % (11.5-14.5); WBC 6.9 10x3/uL (4.8-10.8)
[2018-06-24 10:42] LABS: ANION GAP 12.8 mmol/L (8-16); CALCIUM 8.5 mg/dL (8.5-10.1); CARBON DIOXIDE 27.1 mmol/L (21.0-32.0); CREATININE - SERUM 1.6 mg/dL (0.6-1.3); PHOSPHOROUS 3.7 mg/dL (2.5-4.9); POTASSIUM - SERUM 4.9 mmol/L (3.5-5.1)
== END | disposition home or self-care (01) ==
LOC: D.LAB 09:57
PROVIDERS: ATTEND Internal Medicine Nephrology
DX: N18.9 Chronic kidney disease, unspecified (principal)

== ENCOUNTER → 2018-07-13 13:19 | Outpatient (CLI) | payer MEDICARE, BC ==
[2018-04-28 11:21] VITALS: BMI 28.4
== END | disposition home or self-care (01) ==
LOC: D.US 13:19
PROVIDERS: ATTEND Internal Medicine Cardiovascular Disease
DX: I70.1 Atherosclerosis of renal artery (principal)

== ENCOUNTER → 2019-02-08 10:26 | Outpatient (CLI) | payer MEDICARE, BC ==
[2018-04-28 11:21] VITALS: BMI 28.4
[2019-02-08 11:26] LABS: BASOPHILS 0.1 % (0-2); EOSINOPHILS 2.4 % (0-7); HEMATOCRIT 45.7 % (42.0-54.0); HEMOGLOBIN 14.9 g/dL (13.5-17.5); IMMATURE GRANULOCYTES 0.3 % (0-5); LYMPHOCYTES 29.9 % (15-50); MCH 31.3 pg (26.0-34.0); MCHC 32.6 g/dL (31.0-37.0); MEAN PLATELET VOLUME 8.7 fL (7.4-10.4); MONOCYTES 6.6 % (2-11); NEUTROPHILS 60.7 % (40-80); PLATELET COUNT 192 10x3/uL (130-400); RBC 4.76 10x6/uL (4.20-6.10); RDW 13.5 % (11.5-14.5)
[2019-02-08 11:44] LABS: ANION GAP 7.6 mmol/L (8-16); CALCIUM 9.2 mg/dL (8.5-10.1); CARBON DIOXIDE 32.5 mmol/L (21.0-32.0); CREATININE - SERUM 1.5 mg/dL (0.6-1.3); PHOSPHOROUS 2.8 mg/dL (2.5-4.9); POTASSIUM - SERUM 5.1 mmol/L (3.5-5.1)
[2019-02-08 11:56] LABS: CREATININE - URINE 46.8 mg/dL (30-125); PRO/CRE RATIO URINE 0.1 mg/g; PROTEIN - URINE 6.2 mg/dL (0.0-11.9)
[2019-02-08 11:58] LABS: APPEARANCE CLEAR (CLEAR); COLOR YELLOW (YELLOW)
[2019-02-08 11:59] LABS: BILIRUBIN NEGATIVE (NEGATIVE); GLUCOSE NEGATIVE (NEGATIVE); KETONE NEGATIVE (NEGATIVE); NITRITE NEGATIVE (NEGATIVE); PROTEIN NEGATIVE (NEGATIVE); UROBILINOGEN NORMAL (NORMAL)
== END | disposition home or self-care (01) ==
LOC: D.LAB 10:26
PROVIDERS: ATTEND Internal Medicine Nephrology
DX: N18.2 Chronic kidney disease, stage 2 (mild) (principal)

== ENCOUNTER → 2019-04-07 07:33 | Outpatient (CLI) | payer MEDICARE, BC ==
[2018-04-28 11:21] VITALS: BMI 28.4
== END | disposition home or self-care (01) ==
LOC: D.CT 07:33
PROVIDERS: ATTEND Internal Medicine Cardiovascular Disease
DX: I10 Essential (primary) hypertension (principal)

== ENCOUNTER → 2019-04-20 07:26 | Outpatient (CLI) | payer MEDICARE, BC ==
[2018-04-28 11:21] VITALS: BMI 28.4
== END | disposition home or self-care (01) ==
LOC: D.US 07:26
PROVIDERS: ATTEND Internal Medicine Cardiovascular Disease
DX: I70.1 Atherosclerosis of renal artery (principal)

== ENCOUNTER 2019-04-28 11:16 | Outpatient (CLI) | payer MEDICARE, BC ==
[~2019-04-28] VITALS: Ht 177.8 cm; Wt 103.2 kg
--- NOTE | ~2019-04-28 | HEMODYNAMI ---
PATIENT:KIM HONEYCUTT MEDICAL RECORD: [id number] : 45 LOCATION:[facility] ADMISSION DATE: 04/28/19 Generatedon:04/28/201914:49 Patient name: KIM HONEYCUTT Patient #: [id number] : 1945 Date of study: 04/28/2019 Page: Of Hemodynamic Procedure Report Patient Data Patient Demographics Procedure consent was obtained First Name: KIM Gender: Male Last Name: TANGELA : 1945 Middle Initial: W Age: 73 year(s) Patient #: [id number] Race: SSN: [id number] Additional ID: [id number] Contact details [address]: [address] [place] [address] State: [place] City: [place] Zip code: [address] Past Medical History Allergies Allergen Reaction Date Comments Reported Other allergy 04/16/2018 Warfarin,Statins, PCN, Sulfa Other allergy 04/28/2018 WARFARIN, STATINS, PCN, SULFA Other allergy 04/28/2019 PCN, Plavix, Statins, Warfarin Admission Admission Data Admission Date: 04/28/2019 Admission Time: 11:16 Arrival Date: 04/28/2019 Arrival Time: 0:00 Admit Source: Other Insurance Payor: Private health insurance, Medicare Height (in.): 61 BSA: 2 (m2) Height (cm.): 154.94 BMI: 43.27 (kg/m2) Weight (lbs.): 229 Weight (kg.): 103.87 Lab Results Lab Result Date: 04/28/2019 Lab Result Time: 0:00 Biochemistry Name Units Result Min Max BUN mg/dl 22 --(----)-* 7 18 Creatinine mg/dl 1.6 --(----)-* 0.6 1.3 eGFR ml/min 45 *-(----)-- 90 120 NONAFRICAN CBC Name Units Result Min Max Hemoglobin g/dl 14 --(*---)-- 13.5 17.5 Procedure Procedure Types Cath Procedure Peripheral Cath Diagnostic Procedure Lockmaker Peripheral Procedures AFRO (Diagnostic) Renal Arteriogram NITROGLYCERIN NITRATOR OPERATOR BATCH/STENT Peripheral Peripheral vascular Intervention Angioplasty NITROGLYCERIN NITRATOR OPERATOR BATCH-Renal/Visceral Procedure Description Procedure Date Procedure Date: 04/28/2019 Procedure Start Time: 14:08 Procedure End Time: 14:47 Procedure Staff Name Function Watson Sewell MD Performing Physician Shyla Roper RT Monitor Nic Nelson RN Nurse Sandy Terry RT Scrub Indication Carotid artery disease Procedure Data Cath Procedure Fluoroscopy Diagnostic fluoroscopy Total fluoroscopy Time: 6.3 time: 6.3 min min Diagnostic fluoroscopy Total fluoroscopy dose: dose: 1072 mGy 1072 mGy Contrast Material Contrast Material Type Amount (ml) Isovue 300 81 Entry Location Entry Primary Successful Side Size Upsize Upsize Entry Closure Succes sful Closure Location (Fr) 1 (Fr) 2 (Fr) Remarks Device Remarks Femoral Left 5 Fr 6 Fr Exoseal artery Short Estimated blood loss: 10 ml Diagnostic catheters Device Type Used For End Catheter Placement DIAGNOSTIC UF 5Fr Procedure catheter ([id number]) DIAGNOSTIC JR 4 5Fr Procedure catheter ([id number]) Procedure Complications No complications Procedure Medications Medication Administration Route Dosage 0.9% NaCl I.V. 100 ml/hr Oxygen etCO2 Nasal cannula 2 l/min Heparin Flush Bag added to field 2 bags (1000units/500ml NS) Lidocaine 2% added to field 20 Benadryl I.V. 50 mg Versed I.V. 2 mg Fentanyl I.V. 100 mcg Versed I.V. 2 mg Heparin Bolus I.V. 7000 units Plavix P.O. 600 mg Hemodynamics Rest BSA: 2 (m2) HGB: 14 (g/dl) O2 Consumption: Estimated: 217.57 (ml/min) O2 Consump tion indexed: Estimated:108.78 (ml/min/m) Heart Rate: 53 (bpm) Snapshots Pre Cath Intra NCS Post Cath Vital Signs Time Heart Resp SPO2 etCO2 NIBP (mmHg) Rhythm Pain Sedation Rate (ipm) (%) (mmHg) Status Level (bpm) 13:57:08 56 11 96 26.2 154/75(134) NSR 0 (11) 10(A) , No pain 14:01:35 54 19 98 1.4 147/78(117) NSR 0 (11) 10(A) , No pain 14:05:57 58 12 98 33.7 144/78(114) NSR 0 (11) 10(A) , No pain 14:10:19 59 12 98 38.2 153/77(125) NSR 0 (11) 10(A) , No pain 14:14:41 62 11 98 30.7 148/70(121) NSR 0 (11) 10(A) , No pain 14:19:01 60 13 98 33 152/76(117) NSR 0 (11) 10(A) , No pain 14:23:19 62 12 99 35.2 145/71(123) NSR 0 (11) 10(A) , No pain 14:27:39 61 14 98 35.9 141/71(111) NSR 0 (11) 10(A) , No pain 14:32:48 66 15 98 32.2 156/62(124) NSR 0 (11) 10(A) , No pain 14:37:07 68 15 98 31.5 148/88(130) NSR 0 (11) 10(A) , No pain 14:41:31 59 7 99 33 158/75(122) NSR 0 (11) 10(A) , No pain 14:45:57 58 13 98 33 147/71(118) NSR 0 (11) 10(A) , No pain Medications Time Medication Route Dose Verified Delivered Reason Notes Effectiveness by by 13:55:03 0.9% NaCl I.V. 100 Nic Nic Per physician ml/hr Leslie Nelson RN RN 13:55:12 Oxygen etCO2 2 Nic Nic for low 02 sats Nasal l/min Leslie Nelson cannula RN RN 13:55:21 Heparin Flush added 2 Nic Nic used for Bag to bags Leslie Nelson procedure (1000units/500ml field WALLER RN NS) 13:55:30 Lidocaine 2% added 20ml Nic Nic for local to vial Leslie Nelson anesthetic field WALLER RN 13:55:43 Benadryl I.V. 50 mg Nic Nic Per physician Leslie Nelson RN RN 14:09:40 Versed I.V. 2 mg Nic Nic for sedation Leslie Nelson RN RN 14:09:48 Fentanyl I.V. 100 Nic Nic for sedation mcg Leslie Nelson RN RN 14:13:28 Versed I.V. 2 mg Nic Nic for sedation Leslie Nelson RN, RN 14:20:10 Heparin Bolus I.V. 7,000 Nic Nic for units Leslie Nelson anticoagulation RN RN 14:36:39 Plavix P.O. 600 Nic Lucero for mg Leslie Nelson antiplatelet RN RN therapy Procedure Log Time Note 13:37:04 Arrival Date: 04/28/2019 12:00:00 AM 13:37:05 Admit Source: Other 13:37:10 Insurance Payor : Private health insurance, Medicare 13:37:18 Patient Height : 61 inches 13:37:30 Patient Weight : 229 lbs 13:41:29 Lab Result : eGFR NONAFRICAN 45 ml/min 13:41:29 Lab Result : Creatinine 1.6 mg/dl 13:41:29 Lab Result : BUN 22 mg/dl 13:41:29 Lab Result : Hemoglobin 14 g/dl 13:42:46 Indication : Carotid artery disease 13:43:01 Procedure Status Elective Heart Cath (OP). 13:43:04 Nic Nelson RN sent for patient. Start room use. 13:43:05 Time tracking: Regular hours (M-F 7:00 - 5:00) 13:43:09 Plan of Care:Hemodynamics will remain stable., Cardiac rhythm will remain stable., Comfort level will be maintained., Respiratory function will remain adequate., Patient/ family verbilizes understanding of procedure., Procedure tolerated without complication., Recovers from procedure without complications.. 13:43:21 Patient received from Pre/Post Procedure Room to CCL 2 Alert and oriented. Tansferred to table in Supine position. 13:43:24 Signed procedure consent form obtained from patient. 13:43:25 Warm blankets applied, and senait hugger turned on for patient comfort. 13:43:25 Correct patient and procedure confirmed by team. 13:43:28 ECG and BP/O2 sat monitors applied to patient. 13:43:37 H&P Date Dictated: 04/26/2019 Within 30 days and on chart., H&P Addendum completed by physician on day of procedure. (MUST COMPLETE FOR ALL OUTPATIENTS). 13:43:39 Pre-procedure instructions explained to patient. 13:43:40 Family in waiting room. 13:43:42 Patient NPO since Midnight. 13:44:09 Patient allergic to Other allergyPCN, Plavix, Statins, Warfarin 13:44:12 Is the patient allergic to Iodine/contrast media? No. 13:44:13 Was the patient premedicated? Yes 13:44:45 3a) 45-59 Moderately reduced kidney function. 13:44:50 Use device set Femoral Dx 13:44:52 ACIST Syringe (93791) opened to sterile field. 13:44:52 Bag Decanter (2002S) opened to sterile field. 13:44:53 Medline Cath Pack ([id number]) opened to sterile field. 13:44:54 ACIST Hand Control (07039) opened to sterile field. 13:44:55 ACIST Manifold (40041) opened to sterile field. 13:44:56 Tegaderm 4 x 4 (1626W) opened to sterile field. 13:44:57 SHEATH 5FR Mesa (ARF592) opened to sterile field. 13:44:58 EMERALD Guide Wire (313-476) opened to sterile field. 13:55:03 0.9% NaCl 100 ml/hr I.V. was administered by Nic Nelson RN; Per physician; Verbal order read back and verified. 13:55:12 Oxygen 2 l/min etCO2 Nasal cannula was administered by Nic Nelson RN; for low 02 sats; Verbal order read back and verified. 13:55:21 Heparin Flush Bag (1000units/500ml NS) 2 bags added to field was administered by Nic Nelson RN; used for procedure; Verbal order read back and verified. 13:55:30 Lidocaine 2% 20ml vial added to field was administered by Nic Nelson RN; for local anesthetic; Verbal order read back and verified. 13:55:43 Benadryl 50 mg I.V. was administered by Nic Nelson RN; Per physician; Verbal order read back and verified. 13:55:47 Vital chart was started 14:02:37 Baseline sample Acquired. 14:02:41 Rhythm: sinus rhythm 14:02:42 Full Disclosure recording started 14:02:48 Is patient on blood thinner?No 14:02:50 Patient diabetic? No. 14:02:52 Snore? Yes 14:02:55 Sleep apnea? No 14:03:02 Dentures? No ? 14:03:20 IV patent on arrival in left forearm with 0.9% NaCl at [facility]. 14:03:24 Lab results completed and on chart. 14:03:29 Stress Test: no; abnormal ? 14:03:37 Left groin area was prepped with chlora-prep and draped in sterile fashion 14:04:48 Alarms reviewed by R. N. 14:04:48 Sharps counted by scrub and verified by R.N. 14:04:50 Physician arrived 14:04:51 --------ALL STOP TIME OUT------ 14:04:51 Final Timeout: patient, procedure, and site verified with staff and physician. All members of the team are in agreement. 14:04:53 Left groin site verified by team. 14:04:57 Fire Safety Assessment: A--An alcohol-based skin anteseptic being used preoperatively., C--Open oxygen or nitrous oxide is being used., D--An ESU, laser, or fiber-optic light is being used. 14:05:02 Physical assessment completed. ASA score P 3 - A patient with severe systemic disease as per Watson Sewell MD. 14:05:08 Maximum allowable contrast dose (3.7 X eGFR X 0.75)124 ml. 14:05:14 Sedation plan: IV Moderate Sedation Medication:Versed, Fentanyl 14:07:22 Procedure started. 14:08:00 Local anesthetic to left femerol artery with Lidocaine 2% by Watson Sewell MD.INITIAL ACCESS ONLY 14:09:25 A 5 Fr sheath was inserted into the Left Femoral artery 14:09:40 Versed 2 mg I.V. was administered by Nic Nelson RN; for sedation; Verbal order read back and verified. 14:09:48 Fentanyl 100 mcg I.V. was administered by Nic Nelson RN; for sedation; Verbal order read back and verified. 14:10:33 A DIAGNOSTIC UF 5Fr catheter ([id number]) was advanced over the wire and used for Procedure. 14:10:47 Abdominal angiogram w/ runoff was performed. 14:11:54 Right renal angiography performed. 14:13:28 Versed 2 mg I.V. was administered by Nic Lorigan RN; for sedation; Verbal order read back and verified. 14:14:09 Catheter removed. 14:14:18 A DIAGNOSTIC JR 4 5Fr catheter ([id number]) was advanced over the wire and used for Procedure. 14:14:58 Right renal angiography performed. 14:15:10 Left renal angiography performed. 14:16:22 Catheter removed. 14:18:06 SHEATH 6FR Mesa (IBT636) opened to sterile field. 14:18:07 INFLATOR Merit BasixCompak (IC3647) opened to sterile field. 14:18:08 GUIDE 6FR JR 4.0 catheter ([id number]) opened to sterile field. 14:18:09 BMW 300cm [place] 2 J wire ([id number]) opened to sterile field. 14:18:21 Sheath upsized to a 6 Fr Short. 14:18:31 A 6 FrFr JR4 catheter was inserted over the wire. 14:18:36 BMW wire advanced. 14:20:10 Heparin Bolus 7,000 units I.V. was administered by Nic Nelson RN; for anticoagulation; Verbal order read back and verified. 14:21:05 Balloon advanced to the RT renal 14:23:15 Procedure type changed to Cath procedure, Peripheral Cath Diagnostic Procedure, Lockmaker Peripheral Procedures, AFRO (Diagnostic), Renal Arteriogram, NITROGLYCERIN NITRATOR OPERATOR BATCH/STENT Peripheral, Peripheral vascular Intervention, Angioplasty, NITROGLYCERIN NITRATOR OPERATOR BATCH-Renal/Visceral 14:25:08 Inflate balloon Inflation number: 1 A Mozec Rx 4.0 x 14 balloon was prepped and advanced across the Ostial Renal, Right 90, then inflated to 14 SARAH for 0:23 (min:sec) . 14:27:01 Inflation number: 2 The Mozec Rx 4.0 x 14 balloon was reinflated across the Ostial Renal, Right , to 14 SARAH for 0:34 (min:sec) . 14:29:51 SHEATH 6FR Mesa (TAM072) opened to sterile field. 14:29:59 EXOSEAL 6Fr (EX600) opened to sterile field. 14:30:53 Wire removed. 14:30:54 Guide catheter removed. 14:31:04 Sheath removed intact; hemostasis achieved with Exoseal to the Left Femoral artery. 14:31:32 Procedure ended.(Physican Out) 14:31:43 Fluoroscopy time 06.30 minutes. 14:31:48 Flurop Dose total: 1072 14:31:48 Fluoroscopy dose: 1072 mGy 14:31:54 Dose Area Product 43223 mGy/cm. 14:31:59 Contrast amount:Isovue 300 81ml. 14:32:02 Maximum allowable dose exceeded? No. 14:32:02 Sharps counted by scrub and verified by R.N. 14:32:05 Insertion/operative site no bleeding no hematoma. 14:32:10 Post right femoral artery:stable 14:32:13 Post Procedure Pulses reassessed and unchanged 14:32:20 Post-procedure physical assessment completed. ASA score P 2 - A patient with mild systemic disease as per Watson Sewell MD. 14:32:23 Post procedure rhythm: unchanged. 14:32:26 Estimated blood loss: 10 ml 14:33:21 Procedure and supply charges have been captured, reviewed, submitted and are correct. 14:36:39 Plavix 600 mg P.O. was administered by Nic Nelson RN; for antiplatelet therapy; Verbal order read back and verified. 14:37:28 Diagnostic Cath Status : Elective 14:37:30 PCI Cath Status : Elective 14:37:36 Procedure and supply charges have been captured, reviewed, submitted and are correct. 14:43:51 Procedure and supply charges have been captured, reviewed, submitted and are correct. 14:47:13 Procedure Complication : No complications 14:47:16 Vital chart was stopped 14:47:29 AFRO Findings: PVD: MD will discuss options w/ pt 14:47:37 See physician's report for complete and final results. 14:47:40 Report given to Pre/Post Procedure Room. 14:47:44 Patient transfered to Pre/Post Procedure Room with Stretcher. 14:47:45 Procedure ended. 14:47:45 Full Disclosure recording stopped 14:47:52 End room use (Document Last) 14:48:06 End room use (Document Last) 14:48:39 End room use (Document Last) Intervention Summary Intervention Notes Time ActionType Lesion and Equipment Action# Pressure Duration Attributes Used 14:25:08 Inflate Ostial Mozec Rx 1 14 00:24 balloon Renal, 4.0 x 14 Right balloon 14:27:01 Reinflate Ostial Mozec Rx 2 14 00:34 balloon Renal, 4.0 x 14 Right balloon Device Usage Item Name Manufacture Quantity Catalog Hospital Part Current Minima l Lot# / Number Charge Number Stock Stock Serial# Code ACIST Acist 1 87546 656994 244594 864192 20 Syringe Medical (70307) Systems Inc Bag Microtek 1 2001S 269120 93096 766275 5 Decanter Medical Inc. () Medline Medline 1 [id number] 979690 54140 260221 5 Cath Pack ([id number]) ACIST Hand Acist 1 94678 883593 614811 907389 5 Control Medical (03538) Systems Inc ACIST Acist 1 20636 549990 073975 265417 5 Manifold Medical (52223) Systems Inc Tegaderm 4 3M 1 1626W 773823 620818 293377 5 x 4 (1626W) SHEATH 5FR Terumo 1 TXG894 245775 963237 442938 5 Mesa (TKT057) EMERALD Cardinal 1 502-455 994418 043066 026541 5 Guide Wire Health (502-455) DIAGNOSTIC Cardinal 1 [id number] 010858 607640 674760 10 UF 5Fr Health catheter (334996F0) DIAGNOSTIC Cardinal 1 [id number] 910960 579109 225948 5 JR 4 5Fr Health catheter (465340H) SHEATH 6FR Terumo 2 RSI839 096570 575267 159081 40 Mesa (OQE759) INFLATOR [facility] 1 UO4968 782157 653625 457285 15 [facility] Medical BasixCompak (BQ6489) GUIDE 6FR Medtronic 1 [id number] 594573 39616 293644 1 JR 4.0 catheter ([id number]) BMW 300cm Ayala 1 [id number] 859090 554102 973795 5 [place] 2 Vascular J wire ([id number]) Mozec Rx Cardinal 1 [id number] 193339 [id number] 450841 5 UMOD78 4.0 x 14 Health balloon EXOSEAL 6Fr Cardinal 1 EX600 327113 157489 771080 10 (EX600) Health Signature Audit Mobile Stage Time Signature Unsigned Intra-Procedure 04/28/2019 Shyla Roper 2:48:06 PM RT(R) Intra-Procedure 04/28/2019 Nic 2:48:39 PM Lorigan RN Intra-Procedure 04/28/2019 Watson Sewell MD 2:49:17 PM Signatures Performing Physician : Signature : Watson Sewell MD Date : Time : Monitor : Shyla Judson Signature : RT Date : Time : Nurse : Nic Lorigan Signature : RN Date : Time : [place] [address] [place] [address]
[2019-04-28 11:52] VITALS: BP 157/80; Ht 177.8 cm; Wt 103.2 kg
[2019-04-28] MEDS ORDERED: DILTIAZEM 24HR240 M4 (11:56)
[2019-04-28 12:20] LABS: BASOPHILS 0.2 % (0-2); EOSINOPHILS 2.5 % (0-7); HEMATOCRIT 42.4 % (42.0-54.0); IMMATURE GRANULOCYTES 0.2 % (0-5); LYMPHOCYTES 28.5 % (15-50); MCV 93.8 fL (80.0-100.0); MEAN PLATELET VOLUME 9.1 fL (7.4-10.4); MONOCYTES 8.1 % (2-11); NEUTROPHILS 60.5 % (40-80); PLATELET COUNT 189 10x3/uL (130-400); RBC 4.52 10x6/uL (4.20-6.10); WBC 6.5 10x3/uL (4.8-10.8)
[2019-04-28 12:33] LABS: ANION GAP 9.6 mmol/L (8-16); CALCIUM 8.7 mg/dL (8.5-10.1); CARBON DIOXIDE 28.7 mmol/L (21.0-32.0); CHOL - HDL RATIO 3.9 ratio (2.3-4.9); CREATININE - SERUM 1.6 mg/dL (0.6-1.3); LDL-HDL RATIO 2.6 ratio (1.5-3.5); POTASSIUM - SERUM 4.3 mmol/L (3.5-5.1)
--- NOTE | 2019-04-28 14:54 | NUR ---
REC'D TO ROOM 4 VIA STRETCHER FROM JET PILOT. MONITORS ESTAB. FAMILY AT BS. SEE CHALK TESTER.
--- NOTE | 2019-04-28 15:10 | NUR ---
L GROIN SITE SOFT, C/D/I, PT DENIES NEEDS. ALARMS ON AND C/L IN REACH.
[2019-04-28] MEDS ORDERED: PLAVIX75 MG PO (15:21)
[2019-04-28] MEDS ORDERED: BAYER CHEWABLE81 MG PO (15:21)
--- NOTE | 2019-04-28 15:40 | NUR ---
L GROIN SITE C/D/I, SOFT, NO S/S OF BLEEDING OR HEMATOMA, VSS. C/L IN REACH.
--- NOTE | 2019-04-28 15:55 | NUR ---
VSS. L GROIN SITE C/D/I, PULSES PALP. VSS.
--- NOTE | 2019-04-28 16:30 | NUR ---
ICE CHIPS PROVIDED. GROIN SITE SOFT, NO S/S BLEEDING OR HEMATOMA.
--- NOTE | 2019-04-28 16:55 | NUR ---
BEGIN UNIT #1 OF 2 UNITS PRBC PER MD ORDER, PER HOSPITAL POLICY. PT NOTIFIED OF S/S TO REPORT. ALARMS ON. C/L IN REACH.
--- NOTE | 2019-04-28 17:00 | NUR ---
HOB ELEVATED, L GROIN SITE SOFT, C/D/I. FAMILY BROUGHT FOOD FOR PT.
--- NOTE | 2019-04-28 17:30 | NUR ---
PT VOIDED 550ML CLEAR, YELLOW URINE. ATE SANDWICH, NO N/V. L GROIN SITE C/D/I, NO S/S BLEEDING OR HEMATOMA.
--- NOTE | 2019-04-28 17:48 | NUR ---
D/C INSTRUCTIONS REVIEWED, PT VERBALIZES UNDERSTANDING. PIV D/C'D WITH CATH INTACT, DSG APPLIED.
--- NOTE | 2019-04-28 17:52 | NUR ---
PT DRESSED SELF. TO BR INDEPENDENTLY.
--- NOTE | 2019-04-28 17:56 | NUR ---
PT D/C'D VIA TO PRIVATE VEHICLE WITH ALL HIS PAPERWORK AND BELONGINGS.
== END 2019-04-28 17:59 | disposition home or self-care (01) ==
LOC: D.CATH 11:16
PROVIDERS: ATTEND Internal Medicine Cardiovascular Disease
DX: I70.213 Atherosclerosis of native arteries of extremities with intermittent claudication, bilateral legs (principal); I10 Essential (primary) hypertension; I25.119 Atherosclerotic heart disease of native coronary artery with unspecified angina pectoris; I70.1 Atherosclerosis of renal artery; I65.29 Occlusion and stenosis of unspecified carotid artery

== ENCOUNTER → 2019-07-02 10:05 | Outpatient (CLI) | payer MEDICARE, BC ==
[2019-04-28 11:52] VITALS: BMI 32.6
[~2019-07-02 10:05] MED LIST changes: +DILTIAZEM 24HR240 M4
[2019-07-02 10:46] LABS: BASOPHILS 0.2 % (0-2); EOSINOPHILS 3.2 % (0-7); HEMATOCRIT 45.7 % (42.0-54.0); HEMOGLOBIN 14.8 g/dL (13.5-17.5); LYMPHOCYTES 26.3 % (15-50); MCHC 32.4 g/dL (31.0-37.0); MCV 95.8 fL (80.0-100.0); MEAN PLATELET VOLUME 8.8 fL (7.4-10.4); MONOCYTES 7.5 % (2-11); NEUTROPHILS 62.8 % (40-80); PLATELET COUNT 205 10x3/uL (130-400); RBC 4.77 10x6/uL (4.20-6.10); RDW 14.2 % (11.5-14.5)
[2019-07-02 10:47] LABS: CREATININE - URINE 141.3 mg/dL (30-125); PROTEIN - URINE 13.5 mg/dL (0.0-11.9)
[2019-07-02 10:49] LABS: BILIRUBIN NEGATIVE (NEGATIVE); GLUCOSE NEGATIVE (NEGATIVE); KETONE NEGATIVE (NEGATIVE); NITRITE NEGATIVE (NEGATIVE); SPECIFIC GRAVITY 1.015 (1.005-1.020); UROBILINOGEN NORMAL (NORMAL)
[2019-07-02 10:50] LABS: CREATININE - URINE 204.4 mg/dL (30-125); PRO/CRE RATIO URINE 0.1 mg/g
[2019-07-02 11:02] LABS: ANION GAP 11.4 mmol/L (8-16); CALCIUM 8.8 mg/dL (8.5-10.1); CREATININE - SERUM 1.7 mg/dL (0.6-1.3); PHOSPHOROUS 2.8 mg/dL (2.5-4.9); POTASSIUM - SERUM 4.4 mmol/L (3.5-5.1)
== END | disposition home or self-care (01) ==
LOC: D.LAB 10:05
PROVIDERS: ATTEND Internal Medicine Nephrology
DX: N18.2 Chronic kidney disease, stage 2 (mild) (principal)

== ENCOUNTER → 2020-06-09 09:24 | Outpatient (CLI) | payer MEDICARE, BC ==
[2019-04-28 11:52] VITALS: BMI 32.6
[2020-06-09 09:56] LABS: CREATININE - SERUM 1.6 mg/dL (0.6-1.3)
== END | disposition home or self-care (01) ==
LOC: D.CT 09:24
PROVIDERS: ATTEND Thoracic Surgery (Cardiothoracic Vascular Surgery)
DX: I71.4 Abdominal aortic aneurysm, without rupture (principal)

== ENCOUNTER 2020-07-26 11:10 | Day surgery (SDC) | payer MEDICARE, BC ==
[~2020-07-26] VITALS: Ht 177.8 cm; Wt 101.0 kg
--- NOTE | ~2020-07-26 | HEMODYNAMI ---
PATIENT:KIM HONEYCUTT MEDICAL RECORD: [id number] : 45 LOCATION:[facility] ADMISSION DATE: 07/26/20 Generatedon:113:15 Patient name: KIM HONEYCUTT Patient #: [id number] : 1945 Date of study: 07/26/2020 Page: Of Hemodynamic Procedure Report Patient Data Patient Demographics Procedure consent was obtained First Name: KIM Gender: Male Last Name: TANGELA : 1945 Middle Initial: W Age: 74 year(s) Patient #: [id number] Race: SSN: [id number] Additional ID: [id number] Contact details Address: [address] [place] [address] [address] State: [place] City: [facility] [place] Zip code: [address] Past Medical History Allergies Allergen Reaction Date Comments Reported Other allergy 04/16/2018 Warfarin,Statins, PCN, Sulfa Other allergy 04/28/2018 WARFARIN, STATINS, PCN, SULFA Other allergy 04/28/2019 PCN, Plavix, Statins, Warfarin Admission Admission Data Admission Date: 07/26/2020 Admission Time: 11:10 Arrival Date: 07/26/2020 Arrival Time: 0:00 Admit Source: Other Insurance Payor: Medicare [facility] #: [id number] Height (in.): 69.69 BSA: 2.18 (m2) Height (cm.): 177 BMI: 32.24 (kg/m2) Weight (lbs.): 222.67 Weight (kg.): 101 Lab Results Lab Result Date: 07/26/2020 Lab Result Time: 0:00 Biochemistry Name Units Result Min Max BUN mg/dl 27 --(----)-* 7 18 Creatinine mg/dl 1.6 --(----)-* 0.6 1.3 eGFR ml/min 45 *-(----)-- 90 120 NONAFRICAN CBC Name Units Result Min Max Hematocrit % 43.1 --(*---)-- 42 54 Hemoglobin g/dl 14.1 --(*---)-- 13.5 17.5 Procedure Procedure Types Cath Procedure Sedation Charges Moderate Sedation 10-24 minutes Peripheral Cath Diagnostic Procedure Logistics And Planning Manager Peripheral Procedures AFRO Diagnostic Procedure Description Procedure Date Procedure Date: 07/26/2020 Procedure Start Time: 12:52 Procedure End Time: 13:11 Procedure Staff Name Function Sandy Terry RT Monitor Watson Sewell MD Performing Physician Laura John RT Scrub Gina Ravi RN Nurse Procedure Data Cath Procedure Fluoroscopy Diagnostic fluoroscopy Total fluoroscopy Time: 1.6 time: 1.6 min min Diagnostic fluoroscopy Total fluoroscopy dose: 364 dose: 364 mGy mGy Contrast Material Contrast Material Type Amount (ml) Isovue 300 110 Entry Location Entry Primary Successful Side Size Upsize Upsize Entry Closure Succes sful Closure Location (Fr) 1 (Fr) 2 (Fr) Remarks Device Remarks Femoral Right 5 Fr Exoseal artery Estimated blood loss: 5 ml Diagnostic catheters Device Type Used For End Catheter Placement DIAGNOSTIC Pigtail 5Fr LV Angiography catheter ([id number]) Procedure Complications No complications Procedure Medications Medication Administration Route Dosage Oxygen etCO2 Nasal cannula 2 l/min Lidocaine 2% added to field 20 Heparin Flush Bag added to field 2 bags (1000units/500ml NS) 0.9% NaCl I.V. 100 ml/hr Fentanyl I.V. 100 mcg Versed I.V. 2 mg Fentanyl I.V. 50 mcg Versed I.V. 1 mg Fentanyl I.V. 50 mcg Versed I.V. 1 mg Hemodynamics Rest BSA: 2.18 (m2) HGB: 14.1 (g/dl) O2 Consumption: Estimated: 247.89 (ml/min) O2 Co nsumption indexed: Estimated:113.71 (ml/min/m) Heart Rate: 66 (bpm) Snapshots Pre Cath Intra NCS Post Cath Vital Signs Time Heart Resp SPO2 etCO2 NIBP (mmHg) Rhythm Pain Sedation Rate (ipm) (%) (mmHg) Status Level (bpm) 12:46:10 72 12 96 25.4 142/81(116) NSR 0 (11) 10(A) , No pain 12:57:15 72 13 97 30.6 155/86(138) NSR 0 (11) 9(A) , No pain 13:08:13 84 16 94 28.4 134/71(104) NSR 0 (11) 9(A) , No pain 13:13:07 88 19 93 33.6 138/61(87) NSR 0 (11) 10(A) , No pain Medications Time Medication Route Dose Verified Delivered Reason Notes Effectiveness by by 12:52:09 Oxygen etCO2 2 Gina Gina for low 02 Nasal l/min CHRISTIN Ravi RN sats cannula 12:52:48 Lidocaine 2% added 20ml Gina Watson Sewell for local to vial CHRISTIN Ravi MD anesthetic field 12:53:07 Heparin Flush added 2 Gina Gina used for Bag to bags CHRISTIN Ravi RN procedure (1000units/500ml field NS) 12:53:18 0.9% NaCl I.V. 100 Gina Gina Per ml/hr CHRISTIN Ravi RN physician 12:53:25 Fentanyl I.V. 100 Gina Gina for mcg CHRISTIN Ravi RN sedation 12:53:30 Versed I.V. 2 mg Gina Gina for CHRISTIN Ravi RN sedation 12:57:23 Fentanyl I.V. 50 Gina Gina for mcg CHRISTIN Ravi RN sedation 12:57:27 Versed I.V. 1 mg Gina Gina for CHRISTIN Ravi RN sedation 13:03:13 Fentanyl I.V. 50 Gina Gina for mcg Trav Ravi, sedation RN RN 13:03:16 Versed I.V. 1 mg Gina Gina for Trav Ravi, sedation RN medical diagnostic radiographer Log Time Note 12:16:47 Diagnostic Cath Status : Elective 12:17:06 Arrival Date: 07/26/2020 12:00:00 AM 12:17:07 Admit Source: Other 12:17:10 Insurance Payor : Medicare 12:17:35 ACC Patient presents with Stable Angina CCS Anginal Class 2--Slight limitation of ordinary activity. 12:17:40 Procedure Status Peripheral. 12:17:42 Time tracking: Regular hours (M-F 7:00 - 5:00) 12:17:48 Plan of Care:Hemodynamics will remain stable., Cardiac rhythm will remain stable., Comfort level will be maintained., Respiratory function will remain adequate., Patient/ family verbilizes understanding of procedure., Procedure tolerated without complication., Recovers from procedure without complications.. 12:20:17 Lab Result : Hemoglobin 14.1 g/dl 12:20:17 Lab Result : Hematocrit 43.1 % 12:20:17 Lab Result : eGFR NONAFRICAN 45 ml/min 12:20:17 Lab Result : BUN 27 mg/dl 12:20:17 Lab Result : Creatinine 1.6 mg/dl 12:23:47 H&P Date Dictated: 07/17/2020 Within 30 days and on chart.. 12:26:01 Aaliyah Lehman RN sent for patient. Start room use. 12:32:02 Patient Height : 69.69 inches 12:32:06 Patient Weight : 222.67 lbs 12:35:16 Patient received from Pre/Post Procedure Room to CCL 1 Alert and oriented. Tansferred to table in Supine position. 12:35:18 Signed procedure consent form obtained from patient. 12:35:19 Correct patient and procedure confirmed by team. 12:35:19 Warm blankets applied, and senait hugger turned on for patient comfort. 12:35:20 ECG and BP/O2 sat monitors applied to patient. 12:44:48 Vital chart was started 12:44:49 Baseline sample Acquired. 12:44:55 Rhythm: sinus rhythm 12:44:57 Full Disclosure recording started 12:44:58 Pre-op teaching completed and patient verbalized understanding. 12:44:58 Pre-procedure instructions explained to patient. 12:45:00 Family in patients room. 12:45:03 Patient NPO since Midnight. 12:45:10 Is the patient allergic to Iodine/contrast media? No. 12:45:11 Was the patient premedicated? No 12:45:20 Is patient on blood thinner?No 12:45:21 Patient diabetic? No. 12:45:25 Previous problem with sedation/anesthesia? No ? 12:45:27 Snore? No 12:45:28 Sleep apnea? No 12:45:29 Deviated septum? No 12:45:30 Opens mouth fully? Yes 12:45:32 Sticks out tongue? Yes 12:45:35 Airway obstruction? No ? 12:45:39 Dentures? No ? 12:45:42 Pre procedure: right dorsailis pedis pulse 1+ Palpable, but thready & weak; easily obliterated 12:45:44 Pre procedure: left dorsailis pedis pulse 1+ Palpable, but thready & weak; easily obliterated 12:45:46 Patient pain scale 0/10 ?. 12:45:52 IV patent on arrival in left forearm with 0.9% NaCl at [facility]. 12:45:54 Lab results completed and on chart. 12:45:59 Bilateral groins area was prepped with chlora-prep and draped in sterile fashion 12:46:00 Alarms reviewed by R. N. 12:46:01 Sharps counted by scrub and verified by R.N. 12:46:03 Final Timeout: patient, procedure, and site verified with staff and physician. All members of the team are in agreement. 12:46:03 --------ALL STOP TIME OUT------ 12:46:03 Physician arrived 12:46:06 Bilateral groins site verified by team. 12:46:10 Fire Safety Assessment: A--An alcohol-based skin anteseptic being used preoperatively., C--Open oxygen or nitrous oxide is being used., D--An ESU, laser, or fiber-optic light is being used. 12:46:14 Physical assessment completed. ASA score P 2 - A patient with mild systemic disease as per Watson Sewell MD. 12:46:28 3a) 45-59 Moderately reduced kidney function. 12:47:12 Maximum allowable contrast dose (3.7 X eGFR X 0.75)124 ml. 12:47:18 Sedation plan: IV Moderate Sedation Medication:Versed, Fentanyl 12:47:38 Use device set CATH PACK 12:47:40 ACIST Hand Control (50917) opened to sterile field. 12:47:40 ACIST Syringe (62607) opened to sterile field. 12:47:41 Medline Cath Pack ([id number]) opened to sterile field. 12:47:41 ACIST Manifold (36080) opened to sterile field. 12:47:42 Bag Decanter () opened to sterile field. 12:47:43 EMERALD Guide Wire (655-558) opened to sterile field. 12:47:50 SHEATH 5FR Ward ([id number]) opened to sterile field. 12:49:54 Full Disclosure recording stopped 12:50:34 Baseline sample Acquired. 12:52:09 Oxygen 2 l/min etCO2 Nasal cannula was administered by Gina Ravi RN; for low 02 sats; Verbal order read back and verified. 12:52:35 Procedure started. 12:52:35 Full Disclosure recording started 12:52:40 Local anesthetic to right femoral artery with Lidocaine 2% by Watson Sewell MD.INITIAL ACCESS ONLY 12:52:48 Lidocaine 2% 20ml vial added to field was administered by Watson Sewell MD; for local anesthetic; Verbal order read back and verified. 12:53:07 Heparin Flush Bag (1000units/500ml NS) 2 bags added to field was administered by Gina Ravi RN; used for procedure; Verbal order read back and verified. 12:53:18 0.9% NaCl 100 ml/hr I.V. was administered by Gina Ravi RN; Per physician; Verbal order read back and verified. 12:53:18 A 5 Fr sheath was inserted into the Right Femoral artery 12:53:25 Fentanyl 100 mcg I.V. was administered by Gina Ravi RN; for sedation; Verbal order read back and verified. 12:53:30 Versed 2 mg I.V. was administered by Gina Ravi RN; for sedation; Verbal order read back and verified. 12:57:17 A DIAGNOSTIC Pigtail 5Fr catheter ([id number]) was advanced over the wire and used for LV Angiography. 12:57:23 Fentanyl 50 mcg I.V. was administered by Gina Ravi RN; for sedation; Verbal order read back and verified. 12:57:27 Versed 1 mg I.V. was administered by Gina Ravi RN; for sedation; Verbal order read back and verified. 12:57:44 Abdominal angiogram w/ runoff was performed. 13:03:13 Fentanyl 50 mcg I.V. was administered by Gina Ravi RN; for sedation; Verbal order read back and verified. 13:03:16 Versed 1 mg I.V. was administered by Gina Ravi RN; for sedation; Verbal order read back and verified. 13:04:46 Catheter removed. 13:04:56 EXOSEAL 5Fr (EX500) opened to sterile field. 13:05:39 Sheath removed intact; hemostasis achieved with Exoseal to the Right Femoral artery. 13:05:42 Procedure ended.(Physican Out) 13:06:05 Fluoroscopy time 01.60 minutes. 13:07:38 Fluoroscopy dose: 364 mGy 13:07:38 Flurop Dose total: 364 13:07:44 Dose Area Product 52861 mGy/cm. 13:07:50 Contrast amount:Isovue 300 110ml. 13:07:59 Maximum allowable dose exceeded? No. 13:08:03 Sharps counted by scrub and verified by R.N. 13:08:05 Insertion/operative site no bleeding no hematoma. 13:08:07 Post-op/insertion site Right Femoral artery dressed using a 4 x 4 and Tegaderm. 13:08:11 Post right femoral artery:stable 13:08:14 Post Procedure Pulses reassessed and unchanged 13:08:32 Post procedure rhythm: unchanged. 13:08:47 Estimated blood loss: 5 ml 13:08:49 Post procedure instruction explained to patient.Patient verbalizes understanding. 13:08:49 Patient needs reinforcement of post procedure teaching. 13:10:54 Procedure type changed to Cath procedure, Sedation Charges, Moderate Sedation 10-24 minutes, Peripheral Cath Diagnostic Procedure, Logistics And Planning Manager Peripheral Procedures, AFRO Diagnostic 13:10:56 Procedure and supply charges have been captured, reviewed, submitted and are correct. 13:11:01 Procedure Complication : No complications 13:11:08 AFRO Findings: PVD: MD will discuss options w/ pt 13:11:12 Operative report dictated upon procedure completion. 13:11:12 See physician's report for complete and final results. 13:11:15 Report given to Pre/Post Procedure Room. 13:11:17 Patient transfered to Pre/Post Procedure Room with Stretcher. 13:11:19 Procedure ended. 13:11:19 Full Disclosure recording stopped 13:11:23 End room use (Document Last) 13:13:17 End room use (Document Last) 13:13:36 End room use (Document Last) Device Usage Item Name Manufacture Quantity Catalog Hospital Part Current Minimal L ot# / Number Charge Number Stock Stock Serial# Code ACIST Acist 1 [id number] [id number] 037688 [id number] 20 FormaFina (28930) Systems Inc ACIST Hand Acist 1 89226 194659 017687 608033 5 Control Medical (91673) Systems Inc ACIST Acist 1 09064 586674 751720 383147 5 Manifold Medical (98604) Systems Inc Medline Medline 1 [id number] 623318 09122 376540 5 Cath Pack ([id number]) Bag Microtek 1 2001S 031611 39869 221480 5 [employer] Inc. () EMERALD Cardinal 1 502-455 894182 902931 463744 5 Guide Wire Health (502-455) SHEATH 5FR Terumo 1 [id number] 256018 000282 781013 5 Ward (VYN302) DIAGNOSTIC Cardinal 1 [id number] 993169 479448 380382 5 Pigtail 5Fr Health catheter ([id number]) EXOSEAL 5Fr Cardinal 1 EX500 887633 001283 571715 10 (EX500) Health Signature Audit [place] Stage Time Signature Unsigned Intra-Procedure 07/26/2020 Sandy Terry 1:13:17 PM RT(R) Intra-Procedure 07/26/2020 Gina Ravi, 1:13:36 PM RN Intra-Procedure 07/26/2020 Watson Sewell MD 1:15:12 PM [facility] [address] [facility] [place] [address]
[2020-07-26] MEDS ORDERED: CARDIZEM CD240 MG PO (11:25)
[2020-07-26] MEDS ORDERED: HYDRALAZINE HCL25 MG PO (11:26)
[2020-07-26 11:49] VITALS: BP 154/83; Ht 177.8 cm; Wt 101.0 kg
[2020-07-26 12:01] LABS: BASOPHILS 0.3 % (0-2); EOSINOPHILS 4.9 % (0-7); HEMATOCRIT 43.1 % (42.0-54.0); HEMOGLOBIN 14.1 g/dL (13.5-17.5); IMMATURE GRANULOCYTES 0.2 % (0-5); LYMPHOCYTE ABS# 1.83 10x3/uL (1.32-3.57); LYMPHOCYTES 27.9 % (15-50); MCHC 32.7 g/dL (31.0-37.0); MCV 91.7 fL (80.0-100.0); MEAN PLATELET VOLUME 9.3 fL (7.4-10.4); MONOCYTES 8.8 % (2-11); NEUTROPHILS 57.9 % (40-80); PLATELET COUNT 232 10x3/uL (130-400); RDW 14.5 % (11.5-14.5); WBC 6.6 10x3/uL (4.8-10.8)
[2020-07-26 12:11] LABS: ANION GAP 15.1 mmol/L (8-16); CREATININE - SERUM 1.6 mg/dL (0.6-1.3); POTASSIUM - SERUM 4.1 mmol/L (3.5-5.1)
--- NOTE | 2020-07-26 13:24 | NUR ---
PT ARRIVED BY STRETCHER. PLACED ON MONITORS. ASSESSMENT COMPLETED. VSS AT THIS TIME. CALL LIGHT WITHIN REACH. FAILY AT BEDSIDE.
--- NOTE | 2020-07-26 13:35 | NUR ---
PT HAS RASH NOTED TO ABDOMEN AND LOWER EXTREMETIES. DR. FOSS NOTIFIED AND ORDERS RECEIVED FOR SOLUMEDROL IV. PT DENIES ITCHING/NAUSEA OR RESPIRATORY DISTRESS. VSS AT THIS TIME. CALL LIGHT WITHIN REACH.
--- NOTE | 2020-07-26 14:05 | NUR ---
PT RESTING COMFORTABLY. VSS AT THIS TIME. CALL LIGHT WITHIN REACH. RIGHT GROIN DRESSING C/D/I. NO S/S OF HEMATOMA NOTED. FAMILY AT BEDSIDE. NO NEEDS AT THIS TIME.
--- NOTE | 2020-07-26 14:30 | NUR ---
RIGHT GROIN DRESSING C/D/I. NO S/S OF HEMATOMA NOTED. REDNESS TO CHEST AND ABDOMEN HAVE DECREASED. NO ITCHING OR TINGLING NOTED. HEAD OF BED INC TO 30 DEGREES. TOLERATED WELL. SET UP WITH SANDWICH TRAY AND DRINK. DENIES NAUSEA. REPORTS PAIN IS BETTER. RATES IT A 3/10 AT THIS TIME.
--- NOTE | 2020-07-26 15:00 | NUR ---
RIGHT GROIN DRESSING C/D/I. NO S/S OF HEMATOMA NOTED. CALL LIGHT WITHIN REACH. PT RESTING COMFORTABLY. VSS AT THIS TIME.
--- NOTE | 2020-07-26 15:25 | NUR ---
DR. FOSS ROUNDED AND SPOKE WITH PT AND PT'S SON.
--- NOTE | 2020-07-26 15:30 | NUR ---
PT VOIDED 400cc OF CLEAR YELLOW URINE IN URINAL WITHOUT DIFFICULTY. PIV D/C'D WITH CATH TIP INTACT. TOLERATED WELL. DISCUSSED DISCHARGE INSTRUCTIONS WITH PT AND PT'S FAMILY. THEY VOICED UNDERSTANDING. RIGHT GROIN DRESSING C/D/I. NO S/S OF HEMATOMA NOTED. PT INSTRUCTED TO GET UP AND DRESSED AT THIS TIME. FAMILY AT BEDSIDE TO ASSIST.
--- NOTE | 2020-07-26 15:45 | NUR ---
RIGHT GROIN DRESSING C/D/I. NO S/S OF HEMATOMA NOTED. PT TAKEN OUT TO VEHICLE BY WHEELCHAIR. NO S/S OF DISTRESS NOTED. ALL BELONGINGS AND PAPERWORK IN HAND. EDUARD VILLALOBOS RN NOTIFIED AT DR. ARCE OFFICE OF PT NEEDING CTA.
== END 2020-07-26 15:45 | disposition home or self-care (01) ==
LOC: D.CATH 11:10
PROVIDERS: ATTEND Internal Medicine Cardiovascular Disease
DX: I70.213 Atherosclerosis of native arteries of extremities with intermittent claudication, bilateral legs (principal); I10 Essential (primary) hypertension; I25.118 Atherosclerotic heart disease of native coronary artery with other forms of angina pectoris; R07.9 Chest pain, unspecified; I65.29 Occlusion and stenosis of unspecified carotid artery; R60.0 Localized edema

== ENCOUNTER → 2020-08-03 10:12 | Outpatient (CLI) | payer MEDICARE, BC ==
[2020-07-26 11:49] VITALS: BMI 31.9
[~2020-08-03 10:12] MED LIST changes: +CARDIZEM CD240 MG PO; +HYDRALAZINE HCL25 MG PO
== END | disposition home or self-care (01) ==
LOC: D.CT 10:12
PROVIDERS: ATTEND Internal Medicine Cardiovascular Disease
DX: I70.201 Unspecified atherosclerosis of native arteries of extremities, right leg (principal)

== ENCOUNTER 2020-08-22 09:10 | Inpatient (IN) | payer MEDICARE, BC ==
[2020-08-22] VITALS (11 sets, daily range): BP systolic 138–181; BP diastolic 67–88; BMI 30.4
[~2020-08-22] VITALS: Ht 177.8 cm; Wt 96.2 kg
--- NOTE | ~2020-08-22 | HEMODYNAMI ---
PATIENT:KIM HONEYCUTT MEDICAL RECORD: [id number] : 45 [address] [id number] ADMISSION DATE: 08/22/20 Generatedon:116:15 Patient name: KIM HONEYCUTT Patient #: [id number] : 1945 Date of study: 08/23/2020 Page: Of Hemodynamic Procedure Report Patient Data Patient Demographics Procedure consent was obtained First Name: KIM Gender: Male Last Name: TANGELA : 1945 Middle Initial: W Age: 74 year(s) Patient #: [id number] Race: SSN: [id number] Additional ID: [id number] Contact details Address: [address] [place] [address] [address] State: [place] City: [facility] Zip code: [address] Past Medical History History of disease Date Diagnosis Comments CAD Allergies Allergen Reaction Date Comments Reported Other allergy 04/16/2018 Warfarin,Statins, PCN, Sulfa Other allergy 04/28/2018 WARFARIN, STATINS, PCN, SULFA Other allergy 04/28/2019 PCN, Plavix, Statins, Warfarin Other allergy 08/23/2020 PCN, WARFARIN, SULFA, CLOPIDIGREL, IODINATED CONTRAST MEDIA, STATINS, Admission Admission Data Admission Date: 08/22/2020 Admission Time: 10:29 Arrival Date: 08/23/2020 Arrival Time: 0:00 Room #: [id number] Height (in.): 70 BSA: 2.15 (m2) Height (cm.): 177.8 BMI: 30.68 (kg/m2) Weight (lbs.): 213.85 Weight (kg.): 97 Lab Results Lab Result Date: 08/23/2020 Lab Result Time: 0:00 Biochemistry Name Units Result Min Max BUN mg/dl 25 --(----)-* 7 18 Creatinine mg/dl 1.6 --(----)-* 0.6 1.3 eGFR ml/min 45 *-(----)-- 90 120 NONAFRICAN CBC Name Units Result Min Max Hematocrit % 45.8 --(-*--)-- 42 54 Hemoglobin g/dl 15.2 --(-*--)-- 13.5 17.5 Procedure Procedure Types Cath Procedure Diagnostic Procedure LHC LHC w/Coronaries w/Grafts Sedation Charges Moderate Sedation 25-39 minutes PCI Procedure Coronary Stent Coronary Stent Initial Hemochron ACT Test Procedure Description Procedure Date Procedure Date: 08/23/2020 Procedure Start Time: 15:34 Procedure End Time: 16:13 Procedure Staff Name Function Watson Sewell MD Performing Physician Ina Plata RT Monitor Shyla Roper RT Scrub Nic Nelson RN Nurse Procedure Data Cath Procedure Fluoroscopy Diagnostic fluoroscopy Total fluoroscopy Time: 7.9 time: 7.9 min min Diagnostic fluoroscopy Total fluoroscopy dose: dose: 1095 mGy 1095 mGy Contrast Material Contrast Material Type Amount (ml) Isovue 300 82 Entry Location Entry Primary Successful Side Size Upsize Upsize Entry Closure Succes sful Closure Location (Fr) 1 (Fr) 2 (Fr) Remarks Device Remarks Femoral Right 5 Fr 6 Fr Exoseal artery Short Estimated blood loss: 10 ml Diagnostic catheters Device Type Used For End Catheter Placement MULTIPACK JL 4.0 5Fr Procedure catheter DIAGNOSTIC AR MOD 5Fr Procedure Catheter ([id number]) DIAGNOSTIC LCB 5Fr Procedure catheter ([id number]) DIAGNOSTIC IM 5Fr Procedure catheter ([id number]) Procedure Complications No complications Procedure Medications Medication Administration Route Dosage 0.9% NaCl I.V. 100 ml/hr Oxygen etCO2 Nasal cannula 2 l/min Heparin Flush Bag added to field 2 bags (1000units/500ml NS) Lidocaine 2% added to field 20 Benadryl I.V. 50 mg Versed I.V. 2 mg Fentanyl I.V. 100 mcg Versed I.V. 1 mg Heparin Bolus I.V. 9000 units Solumedrol I.V. 125 mg Effient P.O. 60 mg Hemodynamics Rest BSA: 2.15 (m2) HGB: 15.2 (g/dl) O2 Consumption: Estimated: 242.92 (ml/min) O2 Co nsumption indexed: Estimated:112.99 (ml/min/m) Heart Rate: 65 (bpm) Snapshots Pre Cath Intra NCS Post Cath Vital Signs Time Heart Resp SPO2 etCO2 NIBP (mmHg) Rhythm Pain Sedation Rate (ipm) (%) (mmHg) Status Level (bpm) 15:17:51 61 19 96 33.8 109/68(80) NSR 0 (11) 10(A) , No pain 15:22:48 75 11 96 16.5 142/80(112) NSR 0 (11) 10(A) , No pain 15:27:00 68 15 97 31.5 129/69(95) NSR 0 (11) 10(A) , No pain 15:31:12 65 33 94 26.3 112/70(92) NSR 0 (11) 10(A) , No pain 15:35:18 65 40 93 29.3 114/69(88) NSR 0 (11) 10(A) , No pain 15:39:24 68 25 92 31.5 119/69(89) NSR 0 (11) 10(A) , No pain 15:43:33 70 15 94 30 104/64(76) NSR 0 (11) 10(A) , No pain 15:47:37 82 16 92 26.2 102/66(75) NSR 0 (11) 10(A) , No pain 15:51:41 80 21 88 24 111/66(79) NSR 0 (11) 10(A) , No pain 15:55:49 81 19 88 24.7 102/67(78) NSR 0 (11) 10(A) , No pain 15:59:54 83 30 88 23.2 106/63(81) NSR 0 (11) 10(A) , No pain 16:04:01 75 16 90 23.2 111/63(78) NSR 0 (11) 10(A) , No pain 16:08:04 83 14 91 12 129/77(94) NSR 0 (11) 10(A) , No pain 16:12:12 69 19 93 23.2 123/71(90) NSR 0 (11) 10(A) , No pain Medications Time Medication Route Dose Verified Delivered Reason Notes Effectiveness by by 15:25:26 0.9% NaCl I.V. 100 Nic Nic for arrhythmia ml/hr Lorigan Lorigan RN RN 15:25:35 Oxygen etCO2 2 Nic Nic for low 02 sats Nasal l/min Leslie Nelson cannula RN RN 15:25:45 Heparin Flush added 2 Nic Nic used for Bag to bags Leslie Nelson procedure (1000units/500ml field RN RN NS) 15:25:56 Lidocaine 2% added 20ml Nic Nic for local to vial Leslie Nelson anesthetic field RN RN 15:26:04 Benadryl I.V. 50 mg Nic Nic Per physician Leslie Nelson RN RN 15:29:02 Versed I.V. 2 mg Nic Nic for sedation Leslie Nelson RN RN 15:29:10 Fentanyl I.V. 100 Nic Nic for sedation mcg Leslie Nelson RN RN 15:34:20 Versed I.V. 1 mg Nic Nic for sedation Leslie Nelson RN RN 15:50:33 Heparin Bolus I.V. 9,000 Nic Nic for units Leslie Nelson anticoagulation RN RN 16:04:54 Solumedrol I.V. 125 Nic Nic Per physician mg Leslie Nelson RN RN 16:10:42 Effient P.O. 60 mg Nic Nic for Leslie Nelson antiplatelet RN RN therapy Procedure Log Time Note 14:27:36 Informed consent obtained and on chart 14:28:33 Procedure Status Urgent Heart Cath (IP). 14:28:34 Time tracking: Regular hours (M-F 7:00 - 5:00) 14:28:37 Plan of Care:Hemodynamics will remain stable., Cardiac rhythm will remain stable., Comfort level will be maintained., Respiratory function will remain adequate., Patient/ family verbilizes understanding of procedure., Procedure tolerated without complication., Recovers from procedure without complications.. 14:50:11 Nic Nelson RN sent for patient. Start room use. 15:07:51 Patient received from Med II to CCL 2 Alert and oriented. Tansferred to table in Supine position. 15:07:52 Warm blankets applied, and senait hugger turned on for patient comfort. 15:07:53 ECG and BP/O2 sat monitors applied to patient. 15:07:53 Correct patient and procedure confirmed by team. 15:16:51 Vital chart was started 15:16:52 Baseline sample Acquired. 15:16:54 Rhythm: sinus rhythm 15:16:57 Full Disclosure recording started 15:17:02 H&P Date Dictated: 08/23/2020 ER History on chart.. 15:17:03 Pre-procedure instructions explained to patient. 15:17:04 Pre-op teaching completed and patient verbalized understanding. 15:17:11 Family in patients room. 15:17:13 Patient NPO since Midnight. 15:18:02 Patient allergic to Other allergyPCN, WARFARIN, SULFA, CLOPIDIGREL, IODINATED CONTRAST MEDIA, STATINS, 15:18:03 Is the patient allergic to Iodine/contrast media? Yes.- PRE MEDICATED 15:18:07 Is patient on blood thinner?No 15:18:50 Patient diabetic? No. 15:19:12 PT WAS ON HEPARIN DRIP. IT WAS D/C PRIOR TO TRANSFER INTO ELDERLY SITTER 15:19:17 Previous problem with sedation/anesthesia? No ? 15:19:17 Snore? Yes 15:19:18 Sleep apnea? No 15:19:19 Deviated septum? No 15:19:20 Opens mouth fully? Yes 15:19:22 Sticks out tongue? Yes 15:19:24 Airway obstruction? No ? 15:19:26 Dentures? No ? 15:19:48 Pre procedure: right dorsailis pedis pulse 1+ Palpable, but thready & weak; easily obliterated 15:19:51 Patient pain scale 0/10 ?. 15:19:58 IV patent on arrival in right hand with 0.9% NaCl at KVO. 15:20:50 Lab Result : BUN 25 mg/dl 15:20:50 Lab Result : Creatinine 1.6 mg/dl 15:20:50 Lab Result : eGFR NONAFRICAN 45 ml/min 15:20:50 Lab Result : Hemoglobin 15.2 g/dl 15:20:50 Lab Result : Hematocrit 45.8 % 15:21:05 Patient Weight : 213.85 lbs 15:21:07 Patient Height : 70 inches 15:21:12 Arrival Date: 08/23/2020 12:00:00 AM 15:21:17 Lab results completed and on chart. 15:21:20 Right groin area was prepped with chlora-prep and draped in sterile fashion 15:21:21 Alarms reviewed by R. N. 15:21:21 Sharps counted by scrub and verified by R.N. 15:25:26 0.9% NaCl 100 ml/hr I.V. was administered by Nic Nelson RN; for arrhythmia; Verbal order read back and verified. 15:25:35 Oxygen 2 l/min etCO2 Nasal cannula was administered by Nic Nleson RN; for low 02 sats; Verbal order read back and verified. 15:25:45 Heparin Flush Bag (1000units/500ml NS) 2 bags added to field was administered by Nic Nelson RN; used for procedure; Verbal order read back and verified. 15:25:56 Lidocaine 2% 20ml vial added to field was administered by Nic Nelson RN; for local anesthetic; Verbal order read back and verified. 15:26:04 Benadryl 50 mg I.V. was administered by Nic Nelson RN; Per physician; Verbal order read back and verified. 15:28:32 --------ALL STOP TIME OUT------ 15:28:32 Final Timeout: patient, procedure, and site verified with staff and physician. All members of the team are in agreement. 15:28:33 Right groin site verified by team. 15:28:35 Fire Safety Assessment: A--An alcohol-based skin anteseptic being used preoperatively., C--Open oxygen or nitrous oxide is being used., D--An ESU, laser, or fiber-optic light is being used. 15:28:38 Physical assessment completed. ASA score P 2 - A patient with mild systemic disease as per Watson Sewell MD. 15:28:41 3a) 45-59 Moderately reduced kidney function. 15:28:43 Maximum allowable contrast dose (3.7 X eGFR X 0.75)125 ml. 15:28:46 Sedation plan: IV Moderate Sedation Medication:Versed, Fentanyl 15:29:02 Versed 2 mg I.V. was administered by Nic Nelson RN; for sedation; Verbal order read back and verified. 15:29:10 Fentanyl 100 mcg I.V. was administered by Nic Nelson RN; for sedation; Verbal order read back and verified. 15:30:06 Use device set Femoral Dx 15:30:07 ACIST Syringe (62705) opened to sterile field. 15:30:08 Bag Decanter (2001S) opened to sterile field. 15:30:12 ACIST Hand Control (61752) opened to sterile field. 15:30:13 ACIST Manifold (34622) opened to sterile field. 15:30:15 Tegaderm 4 x 4 (1626W) opened to sterile field. 15:30:16 Medline Cath Pack ([id number]) opened to sterile field. 15:30:17 DIAGNOSTIC Multipack 5Fr catheter set (BQ3443) opened to sterile field. 15:30:22 SHEATH 5FR Burns (XCU488) opened to sterile field. 15:30:22 EMERALD Guide Wire (028-463) opened to sterile field. 15:30:43 Zero performed for pressure channel P1 15:34:10 Procedure started. 15:34:18 Local anesthetic to right femoral artery with Lidocaine 2% by Watson Sewell MD.INITIAL ACCESS ONLY 15:34:20 Versed 1 mg I.V. was administered by Nic Nelson RN; for sedation; Verbal order read back and verified. 15:35:49 A 5 Fr sheath was inserted into the Right Femoral artery 15:36:36 A MULTIPACK JL 4.0 5Fr catheter was advanced over the wire and used for Procedure. 15:39:25 Catheter exchanged over wire. 15:39:50 A DIAGNOSTIC AR MOD 5Fr Catheter ([id number]) was advanced over the wire and used for Procedure. 15:40:38 SVG to RCA angiography performed. 15:40:41 Catheter exchanged over wire. 15:41:29 A DIAGNOSTIC LCB 5Fr catheter ([id number]) was advanced over the wire and used for Procedure. 15:42:09 SVG to OM angiography performed. 15:42:10 Catheter exchanged over wire. 15:42:21 A DIAGNOSTIC IM 5Fr catheter ([id number]) was advanced over the wire and used for Procedure. 15:45:17 MOORE to LAD angiography performed. 15:45:23 Catheter exchanged over wire. 15:46:14 Proceeding to intervention. 15:46:16 SHEATH 6FR Burns (XNV870) opened to sterile field. 15:46:17 INFLATOR Merit BasixCompak (CZ0749) opened to sterile field. 15:46:17 TUBING High Pressure Extension Tubing (Donato) (PH9815P) opened to sterile field. 15:46:18 GUIDE 6FR LCB catheter (LA6LCB) opened to sterile field. 15:46:35 Pre PCI Site: [place] OM1 has 95% stenosis. 15:46:38 ACC Pre-intervention NANDO Flow is 3. 15:46:48 Sheath upsized to a 6 Fr Short. 15:46:58 Zero performed for pressure channel P1 15:48:29 BMW 300cm Straight [place] 2 wire ([id number]) opened to sterile field. 15:48:40 6 Fr LCB guide catheter was inserted over the wire 15:50:33 Heparin Bolus 9,000 units I.V. was administered by Nic Nelson RN; for anticoagulation; Verbal order read back and verified. 15:51:27 BMW 300 wire advanced. 15:51:43 Wire advanced across lesion. 15:54:12 Inflate balloon Inflation number: 1 A EUPHORA 2.0 x 12 Balloon ([id number]) was prepped and advanced across the 1st Ob Clare , then inflated to 12 SARAH for 0:00 (min:sec) . 15:54:18 Balloon removed over the wire. 15:58:05 Place stent Inflation Number: 2 A XIOMARA OTW 2.5 x 15 stent ([id number]) was prepped and advanced across the 1st Ob Clare . The stent was deployed at 11 SARAH for 0:00 (min:sec) . 15:59:01 Stent catheter was removed intact over wire. 15:59:03 Wire removed. 15:59:03 Guide catheter removed. 15:59:10 EXOSEAL 6Fr (EX600) opened to sterile field. 16:01:33 Sheath removed intact; hemostasis achieved with Exoseal to the Right Femoral artery. 16:01:42 Procedure ended.(Physican Out) 16:04:24 Fluoroscopy time 07.90 minutes. 16:04:34 Fluoroscopy dose: 1095 mGy 16:04:34 Flurop Dose total: 1095 16:04:43 Dose Area Product 68953 mGy/cm. 16:04:47 Contrast amount:Isovue 300 82ml. 16:04:49 Maximum allowable dose exceeded? No. 16:04:50 Sharps counted by scrub and verified by R.N. 16:04:53 Post-op/insertion site Right Femoral artery dressed using a 4 x 4 and Tegaderm. 16:04:54 Solumedrol 125 mg I.V. was administered by Nic Nelson RN; Per physician; Verbal order read back and verified. 16:05:05 Post-procedure physical assessment completed. ASA score P 2 - A patient with mild systemic disease as per Watson Sewell MD. 16:05:08 Post procedure rhythm: sinus rhythm 16:05:16 Estimated blood loss: 10 ml 16:05:36 Post procedure instruction explained to patient.Patient verbalizes understanding. 16:05:36 Patient needs reinforcement of post procedure teaching. 16:06:04 Procedure type changed to Cath procedure, Diagnostic procedure, LHC, LHC w/Coronaries w/Grafts, Sedation Charges, Moderate Sedation 25-39 minutes, PCI procedure, Coronary Stent, Coronary Stent Initial, Hemochron ACT Test 16:06:51 Procedure and supply charges have been captured, reviewed, submitted and are correct. 16:06:53 Procedure Complication : No complications 16:10:42 Effient 60 mg P.O. was administered by Nic Nelson RN; for antiplatelet therapy; Verbal order read back and verified. 16:10:58 ACT drawn and resulted at 301 seconds. (normal therapeutic range 180-240 seconds). 16:11:56 Vital chart was stopped 16:12:19 [facility] Findings: mild to moderate CAD (<70%) 16:12:20 Operative report dictated upon procedure completion. 16:12:20 See physician's report for complete and final results. 16:13:05 Report given to [facility]. 16:13:08 Patient transfered to [facility] with Bed. 16:13:15 Procedure ended. 16:13:15 Full Disclosure recording stopped 16:13:24 ACC-PCI Only Patient was given prescriptions, or instructed by Watson Sewell MD to start/continue the following medications upon discharge: Effient 16:13:25 End room use (Document Last) 16:14:40 Procedure ended.(Physican Out) Intervention Summary Intervention Notes Time ActionType Lesion and Equipment Action# Pressure Duration Attributes Used 15:54:12 Inflate 1st Ob [place] EUPHORA 2.0 x 1 12 00:00 balloon 12 Balloon ([id number]) 15:58:05 Place stent 1st Ob [place] XIOMARA OTW 2.5 2 11 00:00 x 15 stent ([id number]) Device Usage Item Name Manufacture Quantity Catalog Hospital Part Current Minim al Lot# / Number Charge Number Stock Stock Serial# Code ACIST Syringe Acist 1 96578 241160 697871 496483 20 (00461) Medical Systems Inc Bag Decanter Microtek 1 2001S 557978 16790 999639 5 (2001S) Medical Inc. ACIST Hand Acist 1 67995 583833 239725 930279 5 Control Medical (51791) Systems Inc ACIST Acist 1 22309 102667 540414 286834 5 Manifold Medical (25454) Systems Inc Tegaderm 4 x 3M 1 1626W 245316 522421 253391 5 4 (1626W) Medline Cath Medline 1 [id number] 853049 05875 979651 5 Pack ([id number]) DIAGNOSTIC Cardinal 1 JX1061 839650 33175 450703 30 Multipack 5Fr Health catheter set (KU2571) SHEATH 5FR Terumo 1 NQD695 808883 038124 413688 5 Burns (OZL389) EMERALD Guide Cardinal 1 502-455 890900 388206 514114 5 Wire Health (502-455) MULTIPACK JL Cardinal 1 486156 5 4.0 5Fr Health catheter DIAGNOSTIC AR Cardinal 1 168526W 766362 174944 383790 15 MOD 5Fr Health Catheter (421890W) DIAGNOSTIC Cardinal 1 402599M 760261 357157 462431 5 LCB 5Fr Health catheter (630661T) DIAGNOSTIC IM Cardinal 1 814438A 022675 339048 812032 5 5Fr catheter Health (742893F) SHEATH 6FR Terumo 1 QBY371 579090 143830 098930 40 Burns (FTV386) INFLATOR Merit 1 UN0558 607339 564798 358824 15 Merit Medical BasixCompak (KP4848) TUBING High Merit 1 HH3883R 013689 46189 914187 10 Pressure Medical Extension Tubing (Sewell) (YE3594F) GUIDE 6FR LCB Medtronic 1 LA6LCB 744878 50709 240527 1 catheter (LA6LCB) BMW 300cm Ayala 1 1983699 420354 837315 640567 5 Straight Vascular [place] 2 wire (7350630) EUPHORA 2.0 x Medtronic 1 [id number] 340828 895484 880130 5 [id number] 12 Balloon (FTC9645F) XIOMARA OTW 2.5 Medtronic 1 [id number] 111270 49936 577902 5 [id number] x 15 stent ([id number]) EXOSEAL 6Fr Cardinal 1 EX600 748109 247017 279338 10 (EX600) Health Signature Audit [place] Stage Time Signature Unsigned Intra-Procedure 08/23/2020 Ina Plata 4:14:24 PM RT(R) Intra-Procedure 08/23/2020 Nic 4:14:40 PM Leslie RN Intra-Procedure 08/23/2020 Watson Sewell MD 4:15:23 PM Signatures Performing Physician : Signature : Watson Sewell MD Date : Time : Monitor : Ina Plata Signature : RT Date : Time : Nurse : Nic Nelson Signature : RN Date : Time : [facility] [address] [place] [address]
[2020-08-22] MEDS ORDERED: DILTIAZEM 24HR240 M4 PO (09:22)
[2020-08-22 09:33] LABS: BASOPHILS 0.5 % (0-2); EOSINOPHILS 4.1 % (0-7); HEMATOCRIT 45.8 % (42.0-54.0); HEMOGLOBIN 15.2 g/dL (13.5-17.5); LYMPHOCYTES 35.9 % (15-50); MCH 29.9 pg (26.0-34.0); MCHC 33.3 g/dL (31.0-37.0); MCV 89.8 fL (80.0-100.0); MEAN PLATELET VOLUME 6.9 fL (7.4-10.4); MONOCYTES 8.5 % (2-11); PLATELET COUNT 225 10x3/uL (130-400); WBC 6.2 10x3/uL (4.8-10.8)
[2020-08-22 09:46] LABS: ANION GAP 13.7 mmol/L (8-16); CALCIUM 9.3 mg/dL (8.5-10.1); CARBON DIOXIDE 26.3 mmol/L (21.0-32.0); CREATININE - SERUM 1.6 mg/dL (0.6-1.3)
[2020-08-22 10:08] LABS: ALBUMIN 3.4 g/dL (3.4-5.0); BILIRUBIN - TOTAL 0.3 mg/dL (0.2-1.3); PROTEIN - SERUM 7.5 g/dL (6.4-8.2)
[2020-08-22 10:09] LABS: TROPONIN-I 1.352 ng/mL (0.000-0.060)
[2020-08-22 10:42] LABS: PROTIME 12.2 SECONDS (11.6-15.0)
[2020-08-22 11:43] LABS: LDL-HDL RATIO 3.7 ratio (1.5-3.5)
--- NOTE | 2020-08-22 14:59 | NUR ---
PT ARRIVED TO UNIT VIA BED FROM ER. PT STATES PAIN IS A 2. DOES NOT HAVE ANY SHARP PAIN MORE OF AN ACHE. RR EVEN NONLABORED ON ROOM AIR. ALL NEEDS MET AT THIS TIME. CLWR.
[2020-08-22 15:55] LABS: INR 1.07 (0.85-1.17); PROTIME 12.8 SECONDS (11.6-15.0)
[2020-08-22 15:57] LABS: APTT 73.5 SECONDS (22.8-39.4)
[2020-08-22 17:07] LABS: CKMB 23.9 U/L (0.0-3.6); CREATINE KINASE 235 UL (21-232)
[2020-08-22 17:09] LABS: TROPONIN-I 3.022 ng/mL (0.000-0.060)
--- NOTE | 2020-08-22 18:25 | NUR ---
PT PTT 73.5 NORMAL. RECHECK PTT IN THE MORNING.
[2020-08-22 22:11] LABS: CKMB 17.8 U/L (0.0-3.6); CREATINE KINASE 191 UL (21-232)
[2020-08-22 22:12] LABS: TROPONIN-I 2.009 ng/mL (0.000-0.060)
[2020-08-23] VITALS (7 sets, daily range): BP systolic 106–133; BP diastolic 59–81; Ht 177.8 cm; Wt 96.2 kg
--- NOTE | 2020-08-23 02:06 | NUR ---
REPORT RECEIVED. CARE RESUMED BY THIS NURSE AT 2230. PT A&0, LAYING IN BED RESTING. NO S/S OF DISTRESS OBSERVED. RR EVEN & UNLABORED ON RA. IV TO L AC INFUSING HEPARIN AT 12 CC/HR, SWAB CAPS IN USE. 66 SR ON TELE. SCDS IN USE. BED LOCKED AND LOWERED, CL IN REACH. ASSESSMENT COMPLETE. WILL CONT POC.
[2020-08-23 03:58] LABS: BASOPHILS 0.9 % (0-2); EOSINOPHILS 0.1 % (0-7); HEMATOCRIT 43.9 % (42.0-54.0); HEMOGLOBIN 14.6 g/dL (13.5-17.5); LYMPHOCYTES 11.9 % (15-50); MCH 29.4 pg (26.0-34.0); MCHC 33.3 g/dL (31.0-37.0); MCV 88.3 fL (80.0-100.0); NEUTROPHILS 86.1 % (40-80); PLATELET COUNT 227 10x3/uL (130-400); RBC 4.97 10x6/uL (4.20-6.10); RDW 14.6 % (11.5-14.5); WBC 7.8 10x3/uL (4.8-10.8)
[2020-08-23 04:26] LABS: ALKALINE PHOSPHATASE 70 U/L (30-120); ALT (SGPT) 39 U/L (10-68); BILIRUBIN - TOTAL 0.31 mg/dL (0.2-1.3); CALC OSMOLALITY 284 mosm/kg (275-300); CALCIUM 8.9 mg/dL (8.5-10.1); CARBON DIOXIDE 24.4 mmol/L (21.0-32.0); CHLORIDE - SERUM 106 mmol/L (98-107); CKMB 16.5 U/L (0.0-3.6); CREATINE KINASE 173 UL (21-232); CREATININE - SERUM 1.5 mg/dL (0.6-1.3); GLUCOSE 158 mg/dL (74-106); POTASSIUM - SERUM 4.2 mmol/L (3.5-5.1); PROTEIN - SERUM 7.2 g/dL (6.4-8.2); SODIUM 140 mmol/L (136-145); TROPONIN-I 2.498 ng/mL (0.000-0.060); UREA NITROGEN 22 mg/dL (7-18); eGFR NON AFRICAN AMERICAN 49 mL/min (90-120)
--- NOTE | 2020-08-23 21:59 | NUR ---
REPORT RECEIVED. PT A&O, UP IN BED ON PHONE. NO S/S OF DISTRESS OBSERVED. RR EVEN & UNLABORED ON RA. IV TO R FA SL, PATENT, SWAB CAPS IN USE. SR 62 ON TELE. BED LOCKED AND LOWERED, CL IN REACH. ASSESSMENT COMPLETE. WILL CONT POC.
[2020-08-24 04:17] VITALS: BP 129/69
[2020-08-24 07:12] LABS: BASOPHILS 0.1 % (0-2); EOSINOPHILS 0 % (0-7); HEMATOCRIT 42.7 % (42.0-54.0); LYMPHOCYTES 5.4 % (15-50); MCH 29.1 pg (26.0-34.0); MCHC 32.9 g/dL (31.0-37.0); MCV 88.7 fL (80.0-100.0); MEAN PLATELET VOLUME 7.5 fL (7.4-10.4); MONOCYTES 1.9 % (2-11); NEUTROPHILS 92.6 % (40-80); PLATELET COUNT 235 10x3/uL (130-400); RBC 4.82 10x6/uL (4.20-6.10); RDW 15.2 % (11.5-14.5)
[2020-08-24 07:22] LABS: ALBUMIN 3.2 g/dL (3.4-5.0); ANION GAP 13.6 mmol/L (8-16); BILIRUBIN - TOTAL 0.23 mg/dL (0.2-1.3); CALCIUM 8.9 mg/dL (8.5-10.1); CARBON DIOXIDE 23.5 mmol/L (21.0-32.0); CREATININE - SERUM 1.7 mg/dL (0.6-1.3); POTASSIUM - SERUM 4.1 mmol/L (3.5-5.1)
[2020-08-24 07:33] LABS: WBC 16.6 10x3/uL (4.8-10.8)
[2020-08-24 08:28] VITALS: BP 156/84
[2020-08-24] MEDS ORDERED: EFFIENT10 MG PO (11:10)
[2020-08-24] MEDS ORDERED: PROTONIX40 MG PO (11:10)
[2020-08-24 12:23] VITALS: BP 150/80
--- NOTE | 2020-08-24 12:36 | MORECARE ---
CASE MANAGEMENT DISCHARGE SUMMARY PATIENT: KIM HONEYCUTT UNIT: [id number] ADM DATE: 08/22/20 AGE: 74 : 45 SEX: M ROOM/BED: D.0962 AUTHOR: PB PEPE PHYSICIAN: REFERRING PHYSICIAN: AUGUSTO GAGNON MD DATE OF SERVICE: 08/24/20 Case Management Discharge Planning Summary DCP REVIEW SUMMARY ANTICIPATED D/C DATE: 08/24/2020 EXPECTED LOS : 2 CASE STATUS: DCP Initiated INITIAL REVIEW: 08/22/2020 INITIAL REVIEWER: Jennifer Velazquez FINAL DISCHARGE DISPOSITION: 01 : Home or Self Care (Routine Discharge) FINAL REVIEWER: FINAL REVIEW DATE: DCP Focus Questions & Answers DCP Screen QUESTION: ANSWER High Risk Factors: : None Walking limitation: Patient stated self rated walking limitation present? : No Age: : 65 - 79 Prior living environment: : Lives Alone Disability ranking: : Grade 1: No significant disability DCP Evaluation QUESTION: ANSWER Patient and/or caregiver agree upon recommended discharge plan? : Yes Family / Caregiver's ability to cope with chronic illness: : a. Adequate (ability to meet patient's medical needs, ensures patient attends medical appts.) Patient's current cognitive status: : *Oriented to person, place, situation, time and present Patient's ability to cope with chronic illness : a. Adequate (0-3 ED visits in 6 mos., adequate financial resources, attends scheduled appts.) Does the patient have the ability to pay for or attain post discharge needs / services? : N/A Functional screen assessment: : Basic needs can adequately be met by self Family / Caregiver's ability to cope with chronic illness: : a. Adequate (ability to meet patient's medical needs, ensures patient attends medical appts.) Physical Status: : Independent with ADL's Equipment needed for post hospitalization: : None Is there a likelihood that the patient will require additional services to return to the preadmission environment? : N/A Living Arrangements: : Home Alone with Support Results of this evaluation have been discussed with: : Patient Patient with capacity for self-care or can be cared for in same environment as prior to hospitalization? 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 : N/A Pharmacy name(s): : [facility] Planned post hospital services covered by insurance plan? : N/A Does Patient have transportation to get home and to follow-up medical appointments when discharged from the hospital? : Yes Would patient like to participate in any Care Coordination programs (if applicable): : Not applicable Does the patient have electricity at home? : Yes Does the patient have running water in their house? : Yes Equipment in use: : None Mental health screen: : No mental health history Psychosocial status: : Independent adult (65+) Abuse/Neglect: : None Resources / Services in place: : None DCP Re-evaluation QUESTION: ANSWER Would patient like to participate in any Care Coordination programs (if applicable): : Not applicable PATIENT: KIM HONEYCUTT ENCOUNTER: [id number] MEDICAL RECORD#: [id number] ADMISSION DATE: 08/22/2020 DISCHARGE DATE: ATTENDING MD: AUGUSTO LOTT : AGE: 74 MARITAL STATUS: D DC PLAN ID: [id number] FACILITY: [facility] PRINTED ON: 08/24/20 12:36 CT All edits/amendments must be made on the electronic document DICTATION DATE: 08/24/20 123 MANUFACTURING SPECIALIST: JULIO 08/24/20 1236 RPT#: [id number] DC DATE: STATUS: ADM IN [facility] [address] [place] [address] END OF REPORT
--- NOTE | 2020-08-24 12:47 | MORECARE ---
CASE MANAGEMENT DISCHARGE SUMMARY PATIENT: KIM HONEYCUTT UNIT: [id number] ADM DATE: 08/22/20 AGE: 74 : 45 SEX: M ROOM/BED: D.2115 AUTHOR: AFSHIN,DOC PHYSICIAN: REFERRING PHYSICIAN: AUGUSTO GAGNON MD DATE OF SERVICE: 08/24/20 Case Management Discharge Planning Summary COMMENTS ENTERED DATE: 08/24/20 12:35 CT COMMENT TYPE: Discharge Planning REVIEWER: Jennifer Velazquez CM met with patient to complete discharge planning assessment and offer availability of needed services. Patient states that he lives independently at home prior to admission. Pt verified that home environment is safe and has electricity and running water. Patient denies need for transportation and state that he has funds for services and medications if needed. PCP is Dr. Ayers and patient uses [facility] on [address] for pharmacy. CM offered and discussed home health, rehab services, and need for any medical equipment. Patient did not express need for offered services at this time. Transportation home will be provided by patient. 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 Home with no stated needs. DCP REVIEW SUMMARY ANTICIPATED D/C DATE: 08/24/2020 EXPECTED LOS : 2 CASE STATUS: DCP Initiated INITIAL REVIEW: 08/22/2020 INITIAL REVIEWER: Jennifer Velazquez FINAL DISCHARGE DISPOSITION: 01 : Home or Self Care (Routine Discharge) FINAL REVIEWER: FINAL REVIEW DATE: DCP Focus Questions & Answers DCP Screen QUESTION: ANSWER High Risk Factors: : None Walking limitation: Patient stated self rated walking limitation present? : No Age: : 65 - 79 Prior living environment: : Lives Alone Disability ranking: : Grade 1: No significant disability DCP Evaluation QUESTION: ANSWER Patient and/or caregiver agree upon recommended discharge plan? : Yes Family / Caregiver's ability to cope with chronic illness: : a. Adequate (ability to meet patient's medical needs, ensures patient attends medical appts.) Patient's current cognitive status: : *Oriented to person, place, situation, time and present Patient's ability to cope with chronic illness : a. Adequate (0-3 ED visits in 6 mos., adequate financial resources, attends scheduled appts.) Does the patient have the ability to pay for or attain post discharge needs / services? : N/A Functional screen assessment: : Basic needs can adequately be met by self Family / Caregiver's ability to cope with chronic illness: : a. Adequate (ability to meet patient's medical needs, ensures patient attends medical appts.) Physical Status: : Independent with ADL's Equipment needed for post hospitalization: : None Is there a likelihood that the patient will require additional services to return to the preadmission environment? : N/A Living Arrangements: : Home Alone with Support Results of this evaluation have been discussed with: : Patient Patient with capacity for self-care or can be cared for in same environment as prior to hospitalization? 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 : N/A [facility]): : [facility] Planned post hospital services covered by insurance plan? : N/A Does Patient have transportation to get home and to follow-up medical appointments when discharged from the hospital? : Yes Would patient like to participate in any Care Coordination programs (if applicable): : Not applicable Does the patient have electricity at home? : Yes Does the patient have running water in their house? : Yes Equipment in use: : None Mental health screen: : No mental health history Psychosocial status: : Independent adult (65+) Abuse/Neglect: : None Resources / Services in place: : None DCP Re-evaluation QUESTION: ANSWER Would patient like to participate in any Care Coordination programs (if applicable): : Not applicable PATIENT: KIM HONEYCUTT ENCOUNTER: [id number] MEDICAL RECORD#: [id number] ADMISSION DATE: 08/22/2020 DISCHARGE DATE: ATTENDING MD: AUGUSTO LOTT : AGE: 74 MARITAL STATUS: D DC PLAN ID: [id number] FACILITY: [facility] PRINTED ON: 08/24/20 12:47 CT All edits/amendments must be made on the electronic document DICTATION DATE: 08/24/201246 MANAGER MARKET DEVELOPMENT: JULIO 08/24/201246 RPT#: [id number] DC DATE: STATUS: ADM IN [facility] [address] [place] [address] END OF REPORT
--- NOTE | 2020-08-24 12:50 | NUR ---
NURSE REVIEWS DC INSTRUCTIONS WITH PATIENT, PATIENT 'S IV REMOVED WITH CATH TIP INTACT , PATIENT REMINDED OF POST HEART CATH RESTRICTIONS. PATIENT DROVE SELF TO HOSPITAL, PATIENT WILL EITHER WAIT FOR 6PM TO GET HERE WHEN HE CAN DRIVE SELF. OR TRY TO CALL SOMEONE TO GET HIM FROM HOSPITAL.
--- NOTE | 2020-08-24 13:47 | NUR ---
NURSE WHEELS PATIENT DOWN TO PATIENT'S RIDE. BELONGINGS IN HAND. NAD NOTED.
--- NOTE | 2020-08-25 20:10 | MORECARE ---
CASE MANAGEMENT DISCHARGE SUMMARY PATIENT: KIM HONEYCUTT UNIT: [id number] ADM DATE: 08/22/20 AGE: 74 : 45 SEX: M ROOM/BED: D.8896 AUTHOR: AFSHINDOC PHYSICIAN: REFERRING PHYSICIAN: AUGUSTO GAGNON MD DATE OF SERVICE: 08/25/20 Case Management Discharge Planning Summary COMMENTS ENTERED DATE: 08/24/20 12:35 CT COMMENT TYPE: Discharge Planning REVIEWER: Jennifer Velazquez CM met with patient to complete discharge planning assessment and offer availability of needed services. Patient states that he lives independently at home prior to admission. Pt verified that home environment is safe and has electricity and running water. Patient denies need for transportation and state that he has funds for services and medications if needed. PCP is Dr. Ayers and patient uses [facility] on [address] for pharmacy. CM offered and discussed home health, rehab services, and need for any medical equipment. Patient did not express need for offered services at this time. Transportation home will be provided by patient. 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 Home with no stated needs. DCP REVIEW SUMMARY ANTICIPATED D/C DATE: 08/24/2020 EXPECTED LOS : 2 CASE STATUS: DCP Initiated INITIAL REVIEW: 08/22/2020 INITIAL REVIEWER: Jennifer Velazquez FINAL DISCHARGE DISPOSITION: 01 : Home or Self Care (Routine Discharge) FINAL REVIEWER: FINAL REVIEW DATE: W[facility] Focus Questions & Answers DCP Screen QUESTION: ANSWER High Risk Factors: : None Walking limitation: Patient stated self rated walking limitation present? : No Age: : 65 - 79 Prior living environment: : Lives Alone Disability ranking: : Grade 1: No significant disability DCP Evaluation QUESTION: ANSWER Patient's ability to cope with chronic illness : a. Adequate (0-3 ED visits in 6 mos., adequate financial resources, attends scheduled appts.) Patient's current cognitive status: : *Oriented to person, place, situation, time and present Family / Caregiver's ability to cope with chronic illness: : a. Adequate (ability to meet patient's medical needs, ensures patient attends medical appts.) Patient and/or caregiver agree upon recommended discharge plan? : Yes Physical Status: : Independent with ADL's Family / Caregiver's ability to cope with chronic illness: : a. Adequate (ability to meet patient's medical needs, ensures patient attends medical appts.) Functional screen assessment: : Basic needs can adequately be met by self Does the patient have the ability to pay for or attain post discharge needs / services? : N/A Living Arrangements: : Home Alone with Support Is there a likelihood that the patient will require additional services to return to the preadmission environment? : N/A Equipment needed for post hospitalization: : None Baseline cognitive status: : *Oriented to person, place, situation, time and present Patient with capacity for self-care or can be cared for in same environment as prior to hospitalization? 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 : N/A Does Patient have transportation to get home and to follow-up medical appointments when discharged from the hospital? : Yes Planned post hospital services covered by insurance plan? : N/A Would patient like to participate in any Care Coordination programs (if applicable): : Not applicable Does the patient have electricity at home? : Yes Does the patient have running water in their house? : Yes Equipment in use: : None Mental health screen: : No mental health history Psychosocial status: : Independent adult (65+) Abuse/Neglect: : None Resources / Services in place: : None DCP Re-evaluation QUESTION: ANSWER Would patient like to participate in any Care Coordination programs (if applicable): : Not applicable PATIENT: KIM HONEYCUTT ENCOUNTER: [id number] MEDICAL RECORD#: [id number] ADMISSION DATE: 08/22/2020 DISCHARGE DATE: 08/24/2020 ATTENDING MD: AUGUSTO LOTT : AGE: 74 MARITAL STATUS: D DC PLAN ID: [id number] FACILITY: [facility] PRINTED ON: 08/25/20 20:09 CT All edits/amendments must be made on the electronic document DICTATION DATE: 08/25/202008 TRANSPORT RN: DM 08/25/202008 RPT#: [id number] DC DATE:08/24/20 STATUS: DIS IN [facility] [address] [place] [address] END OF REPORT
== END 2020-08-24 13:47 | disposition home or self-care (01) | DRG 247 ==
LOC: D.ER 09:10 → D.M2 10:29
PROVIDERS: Emergency Medicine; Internal Medicine Cardiovascular Disease; ADMIT Family Medicine; ATTEND Family Medicine
PROC: B2111ZZ Fluoroscopy of Multiple Coronary Arteries using Low Osmolar Contrast (ICD-10-PCS; 2020-08-23)
PROC: B2121ZZ Fluoroscopy of Single Coronary Artery Bypass Graft using Low Osmolar Contrast (ICD-10-PCS; 2020-08-23)
PROC: B2151ZZ Fluoroscopy of Left Heart using Low Osmolar Contrast (ICD-10-PCS; 2020-08-23)
PROC: B2181ZZ Fluoroscopy of Left Internal Mammary Bypass Graft using Low Osmolar Contrast (ICD-10-PCS; 2020-08-23)
PROC: 027034Z Dilation of Coronary Artery, One Artery with Drug-eluting Intraluminal Device, Percutaneous Approach (ICD-10-PCS; principal; 2020-08-23 14:30)
PROC: 4A023N7 Measurement of Cardiac Sampling and Pressure, Left Heart, Percutaneous Approach (ICD-10-PCS; 2020-08-23 14:30)
DX: I21.4 Non-ST elevation (NSTEMI) myocardial infarction (principal); I25.10 Atherosclerotic heart disease of native coronary artery without angina pectoris; I73.9 Peripheral vascular disease, unspecified; I70.1 Atherosclerosis of renal artery; I10 Essential (primary) hypertension; I25.2 Old myocardial infarction; Z85.828 Personal history of other malignant neoplasm of skin

== ENCOUNTER 2020-08-29 06:56 | Observation (INO) | payer MEDICARE, BC ==
[~2020-08-29] VITALS: Ht 177.8 cm; Wt 102.7 kg
[~2020-08-29 06:56] MED LIST changes: +DILTIAZEM 24HR240 M4 PO; +EFFIENT10 MG PO; +PROTONIX40 MG PO
[2020-08-29 07:32] LABS: BASOPHILS 0.6 % (0-2); EOSINOPHILS 2.9 % (0-7); HEMATOCRIT 42.8 % (42.0-54.0); HEMOGLOBIN 14.3 g/dL (13.5-17.5); LYMPHOCYTES 22.4 % (15-50); MCH 29.6 pg (26.0-34.0); MCHC 33.5 g/dL (31.0-37.0); MCV 88.6 fL (80.0-100.0); MEAN PLATELET VOLUME 7.1 fL (7.4-10.4); MONOCYTES 8.3 % (2-11); NEUTROPHILS 65.8 % (40-80); PLATELET COUNT 217 10x3/uL (130-400); RBC 4.83 10x6/uL (4.20-6.10); WBC 8.6 10x3/uL (4.8-10.8)
[2020-08-29 07:41] LABS: APTT 28.9 SECONDS (22.8-39.4); INR 1.08 (0.85-1.17)
[2020-08-29 07:44] LABS: ANION GAP 10.8 mmol/L (8-16); CALCIUM 8.6 mg/dL (8.5-10.1); CARBON DIOXIDE 26.1 mmol/L (21.0-32.0); CREATININE - SERUM 1.5 mg/dL (0.6-1.3); POTASSIUM - SERUM 3.9 mmol/L (3.5-5.1)
[2020-08-29 08:03] LABS: ALBUMIN 2.9 g/dL (3.4-5.0); BILIRUBIN - TOTAL 0.4 mg/dL (0.2-1.3); PROTEIN - SERUM 6.9 g/dL (6.4-8.2)
[2020-08-29 08:14] LABS: TROPONIN-I 0.134 ng/mL (0.000-0.060)
[2020-08-29 12:23] LABS: CKMB 1.7 U/L (0.0-3.6); CREATINE KINASE 55 UL (21-232)
[2020-08-29 12:27] LABS: TROPONIN-I 0.127 ng/mL (0.000-0.060)
[2020-08-29 18:06] LABS: CKMB 1.5 U/L (0.0-3.6); CREATINE KINASE 54 UL (21-232)
[2020-08-29 18:25] LABS: TROPONIN-I 0.107 ng/mL (0.000-0.060)
--- NOTE | 2020-08-29 20:16 | NUR ---
REPORT RECEIVED. PT A&O, UP IN BED WATCHING TV. NO S/S OF DISTRESS OBSERVED. RR EVEN & UNLABORED ON RA. SPOKE WITH DR. LEVY ABOUT PTS ADMISSION BP, 187/79. DR. LEVY STATED THAT HE WOULD PUT ORDERS IN AND RESTART PTS HOME MEDS. PTS IV WAS INFILTRATED. RESITED TO L FA, PATENT, SL, SWAB CAPS IN PLACE. SR 72 ON TELE. BED LOCKED AND LOWERED, CL IN REACH. ASSESSMENT COMPLETE. WILL CONT POC.
--- NOTE | 2020-08-29 21:09 | HP ---
PATIENT: KIM HONEYCUTT MEDICAL RECORD: [id number] ACCOUNT: [id number] LOCATION:[address] : 45 ADMISSION DATE: 08/29/20 PCP: No PCP HISTORY AND PHYSICAL EXAMINATION DATE OF ADMISSION: 08/29/2020. 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 CHIEF COMPLAINT: Chest pain. HISTORY OF PRESENT ILLNESS: This is a 75-year-old white male with chest pain and leg pain. He states he had an OH last week and a new stent placed on 08/23/2020 by cardiology here. He comes in today complaining of chest pain, squeezing, radiating to shoulder blades. He has tightness like his chest is in a vice. Pain is on the left side. It is moderate and constant pain. He also has pain in his lower abdomen, groin, and left leg. He has a history of peripheral vascular disease. They are with most recent AFRO on 07/19/2020. He also has a history of renal artery stenosis with stents, hypertension, and abdominal aortic aneurysm with endovascular stenting. The patient did not take any nitrates at home. He was brought to the Emergency Department for evaluation. His troponin was elevated at 0.134 and he is admitted. PAST MEDICAL HISTORY: Again coronary artery disease. He has myocardial infarction, abdominal aortic aneurysm, chronic lower extremity edema, peripheral artery disease, skin cancers, and osteoarthritis. PAST SURGICAL HISTORY: He has had coronary artery bypass times 3. He had abdominal aortic aneurysm stent and a stent to the renal artery and iliac arteries. He has had appendectomy, tonsillectomy, left knee replacement, right shoulder rotator cuff repair. He has had multiple skin cancers removed, sinus surgery, knee arthroscopies, and bilateral inguinal hernia repair as a child. ALLERGIES: NOTED TO PENICILLIN, WARFARIN, IODINE, SULFA, PLAVIX, STATINS SOCIAL HISTORY: He is . 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 HABITS: Former smoker, quit approximately 30 years ago. No alcohol or drugs. FAMILY HISTORY: Noncontributory at this time. REVIEW OF SYSTEMS: GENERAL: No major weight changes. HEENT: No particular sinus or allergy problems. RESPIRATORY: No known diagnosis of asthma or emphysema. CARDIAC: See above history. GASTROINTESTINAL: Heartburn. GENITOURINARY: No significant problems there. MUSCULOSKELETAL: Has osteoarthritis with joint replacements and multiple surgeries. NEUROLOGIC: No seizures. No migraines. PSYCHIATRIC: No depression or melancholia. PHYSICAL EXAMINATION: GENERAL: He was still in the Emergency Room when he was examined by me. HISTORY AND PHYSICAL [id number] KIM HONEYCUTT VITAL SIGNS: Temperature 97.0, pulse 92, respirations 16, blood pressure 155/88, and O2 sat 96%. GENERAL: He is awake and alert. He does not appear in acute distress at this time. SKIN: Warm and dry. HEENT: Grossly within normal limits. NECK: Supple. No JVD. No bruit. HEART: Regular rate and rhythm. No murmur. LUNGS: Pretty clear. ABDOMEN: Soft, nontender. EXTREMITIES: He has some general swelling, more on the left leg than the right. LABORATORY DATA: CBC with a white count of 8600, hemoglobin 14.3, hematocrit 42.8. Sodium 139, potassium 3.9, chloride 106, CO2 26.1, BUN 23, creatinine 1.5, glucose 104, calcium 8.6, AST little elevated at 69, ALT elevated at 94. INR 1.08. First troponin was 0.134 second one was 0.127. Chest x-ray, no acute abnormalities seen. ASSESSMENT: 1. Elevated troponin, recent non-ST elevated myocardial infarction with intervention on 08/23/2020. 2. Coronary artery disease status post CABG 2018. 3. Peripheral vascular disease. Most recent AFRO was 421 with noted 100% occlusion of right superficial femoral artery, which appears to reconstitute in the distal segments to collaterals. 4. Hypertension. PLAN: He is admitted. Cardiology is consulted for further recommendations. We will continue his usual home meds. Other tests and procedures as warranted. TRANSINT:[id number] Voice Confirmation ID: [id number] DOCUMENT ID: [id number] JOHNIE LEVY MD at 210 CC: [id number] DICTATION DATE: 08/29/202048 POT ROOM SUPERVISOR: 08/29/202106 ADM IN [place] [id number] [place] [id number]
[2020-08-29 22:51] VITALS: BP 187/79; Ht 177.8 cm; Wt 102.7 kg
[2020-08-30] VITALS: BP 139/74
[2020-08-30 01:48] LABS: CREATINE KINASE 45 UL (21-232)
[2020-08-30 01:51] LABS: TROPONIN-I 0.084 ng/mL (0.000-0.060)
[2020-08-30 04:00] VITALS: BP 146/72
[2020-08-30 08:00] VITALS: BP 158/81
== END 2020-08-30 11:34 | disposition home or self-care (01) ==
LOC: D.ER 06:56 → D.EDHOLD 08:44 → D.M2 08:44 → OBSVTIME 08:44 → D.M2 16:54
PROVIDERS: Student in an Organized Health Care Education/Training Program; ADMIT Family Medicine; ATTEND Family Medicine
DX: R07.9 Chest pain, unspecified (principal); I25.10 Atherosclerotic heart disease of native coronary artery without angina pectoris; M19.90 Unspecified osteoarthritis, unspecified site; I21.4 Non-ST elevation (NSTEMI) myocardial infarction

== ENCOUNTER → 2020-09-25 18:34 | Outpatient (CLI) | payer MEDICARE, BC ==
[2020-08-29 22:51] VITALS: BMI 32.4
[2020-09-25 18:50] LABS: CALCIUM 8.8 mg/dL (8.5-10.1); CARBON DIOXIDE 27.7 mmol/L (21.0-32.0); CREATININE - SERUM 1.7 mg/dL (0.6-1.3); POTASSIUM - SERUM 4.7 mmol/L (3.5-5.1)
== END | disposition home or self-care (01) ==
LOC: D.LABREF 18:34
PROVIDERS: ATTEND Nurse Practitioner Adult Health
DX: I10 Essential (primary) hypertension (principal)